=== PATIENT | male | born 1990 | race African-American/Black ===

== ENCOUNTER 2016-10-09 12:40 | Inpatient (IN) | payer SELFPAY ==
[~2016-10-09] VITALS: Ht 167.6 cm; Wt 74.9 kg
[2016-10-09] MEDS ORDERED: IV NORMAL SALINE 1000ML BAG 1,000 ML IV SCH ×2 (13:40→14:40)
[2016-10-09] MEDS ORDERED: ONDANSETRON PF 4 MG/2 ML VIAL. IV ONE (13:45)
[2016-10-09] MEDS ORDERED: FENTANYL PF 100 MCG/2 ML VIAL. IV PRN ×3 (13:45→14:45)
[2016-10-09] MEDS ORDERED: FAMOTIDINE 20 MG/2 ML VIAL IVP ONE (13:45)
--- NOTE | 2016-10-09 13:46 | PHYS DOC ---
Past Medical History Past Medical History: No Pertinent History Past Surgical History: No Surgical History Alcohol Use: Occasionally Drug Use: None Adult General Chief Complaint Chief Complaint: ABDOMINAL PAIN HPI HPI Patient is a 26 year old male who presents with complaint of abdominal pain, nausea, and vomiting. Patient states that he has been sick for the past 2 weeks. Patient was seen at [facility] one week ago with complaint of chest pain. Patient states that he received a workup while in the emergency department but states that they did not find anything causing his pain. Patient states that he has developed nausea and vomiting over the past week and has been having loose stools. Patient has taken Tylenol to help symptoms with no relief. Patient denies any significant past medical history. Review of Systems Review of Systems Constitutional: Lightheadedness, bodyaches [] Eyes: Denies change in visual acuity, redness, or eye pain [] HENT: Denies nasal congestion or sore throat [] Respiratory: Denies cough or shortness of breath [] Cardiovascular: Denies chest pain or edema [] GI: Nausea, vomiting, diarrhea, abdominal pain [] : Denies dysuria or hematuria [] Musculoskeletal: Denies back pain or joint pain [] Integument: Denies rash or skin lesions [] Neurologic: Denies headache, focal weakness or sensory changes [] Current Medications Current Medications Current Medications Medications (Trade) Dose Ordered Sig/Krupa Start Time Stop Time Status Last Admin Dose Admin Acetaminophen (Tylenol) 650 mg PRN Q4HRS PRN 10/09/16 14:45 10/10/16 14:44 Famotidine (Pepcid) 20 mg 1X ONCE 10/09/16 13:45 10/09/16 13:46 DC 10/09/16 13:56 20 MG Fentanyl Citrate (Fentanyl 2ml Vial) 50 mcg PRN Q2HR PRN 10/09/16 14:45 10/10/16 14:44 UNV Fentanyl Citrate 50 mcg 50 mcg PRN Q2HR PRN 10/09/16 14:45 10/11/16 15:45 Ondansetron HCl (Zofran) 4 mg PRN Q8HRS PRN 10/09/16 14:45 10/10/16 14:44 Sodium Chloride (Iv Sodium Chloride 0.9% 1000ml Bag) 1,000 ml @ 200 mls/hr Q5H 10/09/16 14:45 10/10/16 14:44 10/09/16 15:01 200 MLS/HR Allergies Allergies Allergies Coded Allergies Type Severity Reaction Last Updated Verified No Known Drug Allergies 01/03/14 No Physical Exam Physical Exam Constitutional: Alert, afebrile, appears ill. [] HENT: Normocephalic, atraumatic, bilateral external ears normal, oropharynx dry , no oral exudates, nose normal. [] Eyes: PERRLA, EOMI, conjunctiva normal, no discharge. [] Neck: Normal range of motion, no tenderness, supple, no stridor. [] Cardiovascular: Tachycardia, regular rhythm, no murmur [] Lungs & Thorax: Bilateral breath sounds clear to auscultation [] Abdomen: Hyperactive bowel sounds, soft, right lower quadrant tenderness to palpation with guarding, no masses, no pulsatile masses. [] Skin: Warm, dry, no erythema, no rash. [] Back: No tenderness, no CVA tenderness. [] Extremities: No tenderness, no cyanosis, no clubbing, ROM intact, no edema. [] Neurologic: Alert and oriented X 3, normal motor function, normal sensory function, no focal deficits noted. [] Current Patient Data Vital Signs Vital Signs Date Time Temp Pulse Resp B/P Pulse Ox O2 Delivery O2 Flow Rate FiO2 10/09/16 14:25 77 18 122/81 97 Room Air 10/09/16 12:50 98.7 98.7 Lab Values Laboratory Tests Test 10/09/16 12:50 10/09/16 13:04 Urine Collection Type Unknown Urine Color Merissa Urine Clarity Clear Urine pH 6.5 Urine Specific [place] >=1.030 Urine Protein >=300mg/dL (NEG-TRACE) Urine Glucose (UA) Negativemg/dL (NEG) Urine Ketones (Stick) >=80mg/dL (NEG) Urine Blood Large (NEG) Urine Nitrite (NEG) Urine Bilirubin Large (NEG) Urine Urobilinogen Dipstick 1.0mg/dL (0.2 mg/dL) Urine Leukocyte Esterase (NEG) Urine RBC Occ/HPF (0-2) Urine WBC 5-10/HPF (0-4) Urine Amorphous Sediment Present/HPF Urine Bacteria Few/HPF (0-FEW) Urine Hyaline Casts Many/HPF Urine Granular Casts Few/HPF Urine Mucus Mod/LPF White Blood Count 4.7x10^3/uL (4.0-11.0) Red Blood Count 5.69x10^6/uL (4.30-5.70) Hemoglobin 16.7g/dL (13.0-17.5) Hematocrit 50.5% (39.0-53.0) Mean Corpuscular Volume 89fL (79-100) Mean Corpuscular Hemoglobin 29pg (25-35) Mean Corpuscular Hemoglobin Concent 33g/dL (31-37) Red Cell Distribution Width 12.9% (11.5-14.5) Platelet Count 93x10^3/uL (140-400) L Neutrophils (%) (Auto) 52% (31-73) Lymphocytes (%) (Auto) 37% (24-48) Monocytes (%) (Auto) 10% (0-9) H Eosinophils (%) (Auto) 0% (0-3) Basophils (%) (Auto) 1% (0-3) Neutrophils # (Auto) 2.5x10^3uL (1.8-7.7) Lymphocytes # (Auto) 1.7x10^3/uL (1.0-4.8) Monocytes # (Auto) 0.5x10^3/uL (0.0-1.1) Eosinophils # (Auto) 0.0x10^3/uL (0.0-0.7) Basophils # (Auto) 0.0x10^3/uL (0.0-0.2) Platelet Estimate Decreased (ADEQUATE) Giant Platelets Present Spherocytes Present [place] Bodies Present Acanthocytes (Spur Cells) Present Sodium Level 132mmol/L (136-145) L Potassium Level 3.7mmol/L (3.5-5.1) Chloride Level 96mmol/L (98-107) L Carbon Dioxide Level 23mmol/L (21-32) Anion Gap 13 (6-14) Blood Urea Nitrogen 24mg/dL (8-26) Creatinine 1.1mg/dL (0.7-1.3) Estimated GFR (Cockcroft-Gault) 99.5 BUN/Creatinine Ratio 22 (6-20) H Glucose Level 88mg/dL (70-99) Calcium Level 8.7mg/dL (8.5-10.1) Total Bilirubin 0.8mg/dL (0.2-1.0) Aspartate Amino Transferase (AST) 470U/L (15-37) H Alanine Aminotransferase (ALT) 200U/L (16-63) H Alkaline Phosphatase 79U/L (46-116) Creatine Kinase 2906U/L (39-308) H Total Protein 7.3g/dL (6.4-8.2) Albumin 2.9g/dL (3.4-5.0) L Albumin/Globulin Ratio 0.7 (1.0-1.7) L Lipase 1638U/L (73-393) H Laboratory Tests 10/09/16 13:04 Laboratory Tests 10/09/16 13:04 EKG EKG Not performed [] Radiology/Procedures Radiology/Procedures [facility] [address] [place] [address] IMAGING REPORT Signed PATIENT: RJ SORENSEN ACCOUNT: [id number] : 1990 LOCATION: ER AGE: 26 SEX: M EXAM STATUS: REG ER ORD. PHYSICIAN: VERO ORTIZ MD REASON: acute pancreatitis PROCEDURE: ABD PELV W/ IV CONTRAST ONLY EXAM: CT abdomen/pelvis with contrast. HISTORY: Pancreatitis. TECHNIQUE: Computed tomography of the abdomen and pelvis was performed after the intravenous administration of 75 mL Omnipaque 300. COMPARISON: None. FINDINGS: Lung windows through the visualized portions of the bases reveal trace bilateral pleural effusions and mild atelectasis. Bone windows reveal no suspicious lesions. There is trace perisplenic ascites. The spleen itself is unremarkable. The liver, gallbladder, adrenal glands and kidneys are unremarkable. There are no pathologically enlarged lymph nodes. There is trace free pelvic fluid. The appendix is not inflamed. There is no obstruction. There is no clear peripancreatic inflammation. The pancreatic parenchyma enhances normally. The duct is not dilated. The splenic vein remains patent. No pseudoaneurysm is seen. The common duct is not dilated. IMPRESSION: 1. No clear peripancreatic inflammation or complications of pancreatitis. 2. Trace pleural effusions and trace ascites. *One or more of the following individualized dose reduction techniques were utilized for this examination: 1. Automated exposure control. 2. Adjustment of the mA and/or kV according to patient size. 3. Use of iterative reconstruction technique. DICTATED and SIGNED BY: EMMANUEL LE MD DATE: 10/09/16 1538 CC: VERO ORTIZ MD; NO PCP ~ [] Course & Med Decision Making Course & Med Decision Making Pertinent Labs and Imaging studies reviewed. (See chart for details) The patient was found to have rhabdomyolysis and acute pancreatitis. Patient's rhabdomyolysis is likely secondary to dehydration. Etiology of pancreatitis unclear at this time. The patient will require admission to the hospital for continued IV hydration and further workup. I spoke with Dr. Clark who accepted care patient in hospital. Dragon Disclaimer Dragon Disclaimer This electronic medical record was generated, in whole or in part, using a voice recognition dictation system. Departure Departure Impression: Primary Impression: Rhabdomyolysis Additional Impressions: Acute pancreatitis Dehydration Disposition: ADMITTED INPATIENT Admitting Physician: Dania Clark Condition: STABLE Referrals: NO PCP (PCP) Problem Qualifiers Primary Impression: Rhabdomyolysis Rhabdomyolysis type: non-traumatic Qualified Code: M62.82 - Rhabdomyolysis Additional Impressions: Acute pancreatitis Pancreatitis type: unspecified pancreatitis type Acute pancreatitis complication: unspecified Qualified Code: K85.90 - Acute pancreatitis without necrosis or infection, unspecified VERO ORTIZ MD Oct 09, 2016 13:46
[2016-10-09 13:51] LABS: BILIRUBIN,URINE LARGE (NEG); GLUCOSE,URINE NEGATIVE (NEG); PH,URINE 6.5; PROTEIN,URINE >=300 mg/dL (NEG-TRACE)
[2016-10-09 13:52] LABS: BASO % 1 % (0-3); EOS % 0 % (0-3); HEMATOCRIT 50.5 % (39.0-53.0); HEMOGLOBIN 16.7 g/dL (13.0-17.5); LYMPH # 1.7 x10^3/uL (1.0-4.8); LYMPH % 37 % (24-48); MEAN CORPUSCULAR HEMOGLOBIN 29 pg (25-35); MEAN CORPUSCULAR HGB CONC 33 g/dL (31-37); MEAN CORPUSCULAR VOLUME 89 fL (79-100); MONO % 10 % (0-9); NEUT % 52 % (31-73); PLATELET COUNT 93 x10^3/uL (140-400); RED BLOOD COUNT 5.69 x10^6/uL (4.30-5.70); RED CELL DISTRIBUTION WIDTH 12.9 % (11.5-14.5); WHITE BLOOD COUNT 4.7 x10^3/uL (4.0-11.0)
[2016-10-09 14:05] LABS: CALCIUM 8.7 mg/dL (8.5-10.1); CREATININE 1.1 mg/dL (0.7-1.3); GFR 99.5; POTASSIUM 3.7 mmol/L (3.5-5.1)
[2016-10-09 14:11] LABS: BACTERIA,URINE FEW /HPF (0-FEW); RBC,URINE OCC /HPF (0-2)
[2016-10-09 14:19] LABS: ALBUMIN 2.9 g/dL (3.4-5.0); ALBUMIN/GLOBULIN RATIO 0.7 (1.0-1.7); TOTAL BILIRUBIN 0.8 mg/dL (0.2-1.0); TOTAL PROTEIN 7.3 g/dL (6.4-8.2)
[2016-10-09] MEDS ORDERED: ACETAMINOPHEN 325 MG TABLET. PO PRN (14:45)
[2016-10-09] MEDS ORDERED: ONDANSETRON PF 4 MG/2 ML VIAL. IV PRN ×2 (14:45)
[2016-10-09 14:53] LABS: PLT ESTIMATE DECREASED (ADEQUATE)
[2016-10-09 14:54] LABS: ACANTHOCYTES PRESENT; SPHEROCYTES PRESENT
[2016-10-09] MEDS ORDERED: IV NORMAL SALINE 1000ML BAG 1,000 ML IV ONE (15:00)
[2016-10-09] MEDS: IV NORMAL SALINE 1000ML BAG 1,000 ML IV SCH ×2 (15:01→22:46)
[2016-10-09 15:13] LABS: HOWELL-JOLLY BODIES PRESENT
[2016-10-09] MEDS ORDERED: IOHEXOL 300 MG/ML 75 ML VIAL IV ONE (15:15)
[2016-10-09] MEDS ORDERED: CONTRAST GIVEN MC PRN (15:15)
--- NOTE | 2016-10-09 15:51 | RAD ---
EXAM: CT abdomen/pelvis with contrast. HISTORY: Pancreatitis. TECHNIQUE: Computed tomography of the abdomen and pelvis was performed after the intravenous administration of 75 mL Omnipaque 300. COMPARISON: None. FINDINGS: Lung windows through the visualized portions of the bases reveal trace bilateral pleural effusions and mild atelectasis. Bone windows reveal no suspicious lesions. There is trace perisplenic ascites. The spleen itself is unremarkable. The liver, gallbladder, adrenal glands and kidneys are unremarkable. There are no pathologically enlarged lymph nodes. There is trace free pelvic fluid. The appendix is not inflamed. There is no obstruction. There is no clear peripancreatic inflammation. The pancreatic parenchyma enhances normally. The duct is not dilated. The splenic vein remains patent. No pseudoaneurysm is seen. The common duct is not dilated. IMPRESSION: 1. No clear peripancreatic inflammation or complications of pancreatitis. 2. Trace pleural effusions and trace ascites. *One or more of the following individualized dose reduction techniques were utilized for this examination: 1. Automated exposure control. 2. Adjustment of the mA and/or kV according to patient size. 3. Use of iterative reconstruction technique.
--- NOTE | 2016-10-09 16:25 | PDOC1 ---
History and Physical Date of Admission Date of Admission DATE: 10/09/16 TIME: 16:18 Identification/Chief Complaint Chief Complaint abd pain, lethargy, no appetite Source Source: Chart review, Patient History of Present Illness History of Present Illness Mr. Cool, is a 26 year old male admitted for worsening abdominal pain, nausea, and vomiting. He went to 2 weeks ago, was seen in the ER for chest pain and was DC home He has since felt sick for the past 2 weeks. Now nausea and vomiting over the past week and has been having loose stools. His urine color has changed to very dark very poor appetite, mostly only liquid intake, Patient has taken Tylenol - no relief. Past Medical History Past Medical History not currently working, + tobacco, lives with his sister Cardiovascular: No pertinent hx Pulmonary: No pertinent hx GI: No pertinent hx Heme/Onc: No pertinent hx Hepatobiliary: No pertinent hx Psych: No pertinent hx Rheumatologic: No pertinent hx Infectious disease: No pertinent hx ENT: No pertinent hx Renal/: No pertinent hx Past Surgical History Past Surgical History: No pertinent history Family History Family History: No Significant Social History Smoke: <1 pack per day ALCOHOL: none Drugs: None Current Medications Current Medications Current Medications Fentanyl Citrate 50 mcg 50 mcg PRN Q15MIN PRN IV PAIN GREATER THAN 3/10 Last administered on 10/09/16 13:56; Start 10/09/16 at 13:45; Stop 10/10/16 at 13:44 Sodium Chloride (Iv Sodium Chloride 0.9% 1000ml Bag) 1,000 ml @ 1,000 mls/hr Q1H IV Last administered on 10/09/16 13:57; Start 10/09/16 at 13:40; Stop at 14:39; Status DC Ondansetron HCl (Zofran) 4 mg 1X ONCE IV Last administered on 10/09/16 13:55; Start 10/09/16 at 13:45; Stop 10/09/16 at 13:46; Status DC Famotidine 20 mg 20 mg 1X ONCE IVP Last administered on 10/09/16 13:56; Start 10/09/16 at 13:45; Stop 10/09/16 at 13:46; Status DC Sodium Chloride (Iv Sodium Chloride 0.9% 1000ml Bag) 1,000 ml @ 1,000 mls/hr 1X ONCE IV Last administered on 10/09/16 14:50; Start 10/09/16 at 15:00; Stop 10/09/16 at 15:59; Status DC Ondansetron HCl (Zofran) 4 mg PRN Q8HRS PRN IV NAUSEA/VOMITING; Start 10/09/16 at 14:45; Stop 10/10/16 at 14:44; Status UNV Fentanyl Citrate 50 mcg 50 mcg PRN Q2HR PRN IV PAIN; Start 10/09/16 at 14:45; Stop 10/10/16 at 14:44; Status UNV Sodium Chloride (Iv Sodium Chloride 0.9% 1000ml Bag) 1,000 ml @ 125 mls/hr Q8H IV ; Start 10/09/16 at 14:40; Stop 10/10/16 at 14:39; Status UNV Ondansetron HCl (Zofran) 4 mg PRN Q8HRS PRN IV NAUSEA/VOMITING; Start 10/09/16 at 14:45; Stop 10/10/16 at 14:44 Fentanyl Citrate 50 mcg 50 mcg PRN Q2HR PRN IV PAIN; Start 10/09/16 at 14:45; Stop 10/11/16 at 15:45 Sodium Chloride (Iv Sodium Chloride 0.9% 1000ml Bag) 1,000 ml @ 200 mls/hr Q5H IV Last administered on 10/09/16 15:01; Start 10/09/16 at 14:45; Stop 10/10/16 at 14:44 Acetaminophen (Tylenol) 650 mg PRN Q4HRS PRN PO FEVER; Start 10/09/16 at 14:45; Stop 10/10/16 at 14:44 Iohexol (Omnipaque 300 Mg/ml) 75 ml 1X ONCE IV Last administered on 10/09/16 15:26; Start 10/09/16 at 15:15; Stop 10/09/16 at 15:16; Status DC Info (Do NOT chart on this entry -- for MONITORING) 1 each PRN DAILY PRN MC SEE COMMENTS; Start 10/09/16 at 15:15; Stop 10/11/16 at 15:14 Allergies Allergies: Coded Allergies: No Known Drug Allergies (Unverified , 01/03/14) ROS General: YES: Appetite, No: Chills, Fatigue, Malaise, Night Sweats, Other PSYCHOLOGICAL ROS: YES: Irritablity, No: Anxiety, Behavioral Disorder, Concentration difficultie, Decreased libido , Depression, Disorientation, Hallucinations, Hostility, Memory difficulties, Mood Swings, Obsessive thoughts, Other, Physical abuse, Sexual abuse, Sleep disturbances, Suicidal ideation Eyes: Yes Uses glasses, No Blurry vision, No Decreased vision, No Double vision, No Dry eyes, No Excessive tearing, No Eye Pain, No Itchy Eyes, No Loss of vision, No Other, No Photophobia, No Scotomata, No Uses contacts HEENT: YES: Heacaches, No: Epistaxis, Hearing change, Nasal congestion, Nasal discharge, Oral lesions, Other, Sinus pain, Sneezing, Snoring, Sore Throat, Tinnitus, Vertigo, Visual Changes, Vocal changes Respiratory: No: Cough, Hemoptysis, Orthopnea, Other, Pleuritic Pain, SOB with excertion, Shortness of breath, Sputum Changes, Stridor, Tachypnea, Wheezing Cardiovascular: yes Chest Pain, No Edema, No Lt Headedness, No Orthopnea, No Other, No Palpitations, No Paroxysmal Noc. Dyspnea Gastrointestinal: Yes Abdominal Pain, Yes Nausea, No Constipation, No Diarrhea, No Hematochezia, No Melena, No Other, No Vomiting Genitourinary: YES Dysuria (DARK), YES Other, No , No , No , No , No , No , No , No Discharge, No Flank Pain, No Frequency , No Hematuria, No Incontinence, No Pain, No Retention, No Urgency Musculoskeletal: Yes Joint Pain, No Gait Disturbance, No Joint Stiffness, No Joint Swelling, No Muscle Pain, No Muscular Weakness, No Other, No Pain In:, No Swelling In: Neurological: No Behavorial Changes, No Bowel/Bladder ControlChng, No Confusion , No Dizziness, No Gait Disturbance, No Headaches, No Impaired Coord/balance, No Memory Loss, No Numbness/Tingling, No Other, No Seizures, No Speech Problems , No Tremors, No Visual Changes, No Weakness Skin: No Acne, No Dry Skin, No Eczema, No Hair Changes, No Lumps, No Mole Changes, No Mottling, No Nail Changes, No Other, No Pruritus, No Rash, No Skin Lesion Changes Physical Exam General: Alert, Oriented X3, Cooperative, mild distress HEENT: Atraumatic, PERRLA, EOMI, Mucous membr. moist/pink, Other (tongue is pierced) Lungs: Clear to auscultation, Normal air movement Abdomen: Normal bowel sounds, Soft (tender, no guarding, no peritoneal, ) Extremities: No clubbing, No cyanosis, No edema, Normal pulses Skin: No breakdown Neuro: Normal gait, Normal tone, Sensation intact Psych/Mental Status: Mood NL Vitals Vitals Vital Signs Date Time Temp Pulse Resp B/P Pulse Ox O2 Delivery O2 Flow Rate FiO2 10/09/16 16:00 72 18 118/74 99 10/09/16 14:25 Room Air 10/09/16 12:50 98.7 98.7 Labs Labs Laboratory Tests Test 10/09/16 12:50 10/09/16 13:04 Urine Collection Type Unknown Urine Color Merissa Urine Clarity Clear Urine pH 6.5 Urine Specific [place] >=1.030 Urine Protein >=300mg/dL (NEG-TRACE) Urine Glucose (UA) Negativemg/dL (NEG) Urine Ketones (Stick) >=80mg/dL (NEG) Urine Blood Large (NEG) Urine Nitrite (NEG) Urine Bilirubin Large (NEG) Urine Urobilinogen Dipstick 1.0mg/dL (0.2 mg/dL) Urine Leukocyte Esterase (NEG) Urine RBC Occ/HPF (0-2) Urine WBC 5-10/HPF (0-4) Urine Amorphous Sediment Present/HPF Urine Bacteria Few/HPF (0-FEW) Urine Hyaline Casts Many/HPF Urine Granular Casts Few/HPF Urine Mucus Mod/LPF White Blood Count 4.7x10^3/uL (4.0-11.0) Red Blood Count 5.69x10^6/uL (4.30-5.70) Hemoglobin 16.7g/dL (13.0-17.5) Hematocrit 50.5% (39.0-53.0) Mean Corpuscular Volume 89fL (79-100) Mean Corpuscular Hemoglobin 29pg (25-35) Mean Corpuscular Hemoglobin Concent 33g/dL (31-37) Red Cell Distribution Width 12.9% (11.5-14.5) Platelet Count 93x10^3/uL (140-400) Neutrophils (%) (Auto) 52% (31-73) Lymphocytes (%) (Auto) 37% (24-48) Monocytes (%) (Auto) 10% (0-9) Eosinophils (%) (Auto) 0% (0-3) Basophils (%) (Auto) 1% (0-3) Neutrophils # (Auto) 2.5x10^3uL (1.8-7.7) Lymphocytes # (Auto) 1.7x10^3/uL (1.0-4.8) Monocytes # (Auto) 0.5x10^3/uL (0.0-1.1) Eosinophils # (Auto) 0.0x10^3/uL (0.0-0.7) Basophils # (Auto) 0.0x10^3/uL (0.0-0.2) Platelet Estimate Decreased (ADEQUATE) Giant Platelets Present Spherocytes Present [place] Bodies Present Acanthocytes Present Sodium Level 132mmol/L (136-145) Potassium Level 3.7mmol/L (3.5-5.1) Chloride Level 96mmol/L (98-107) Carbon Dioxide Level 23mmol/L (21-32) Anion Gap 13 (6-14) Blood Urea Nitrogen 24mg/dL (8-26) Creatinine 1.1mg/dL (0.7-1.3) Estimated GFR (Cockcroft-Gault) 99.5 BUN/Creatinine Ratio 22 (6-20) Glucose Level 88mg/dL (70-99) Calcium Level 8.7mg/dL (8.5-10.1) Total Bilirubin 0.8mg/dL (0.2-1.0) Aspartate Amino Transf (AST/SGOT) 470U/L (15-37) Alanine Aminotransferase (ALT/SGPT) 200U/L (16-63) Alkaline Phosphatase 79U/L (46-116) Creatine Kinase 2906U/L (39-308) Total Protein 7.3g/dL (6.4-8.2) Albumin 2.9g/dL (3.4-5.0) Albumin/Globulin Ratio 0.7 (1.0-1.7) Lipase 1638U/L (73-393) Laboratory Tests Test 10/09/16 12:50 10/09/16 13:04 Urine Collection Type Unknown Urine Color Merissa Urine Clarity Clear Urine pH 6.5 Urine Specific [place] >=1.030 Urine Protein >=300mg/dL (NEG-TRACE) Urine Glucose (UA) Negativemg/dL (NEG) Urine Ketones (Stick) >=80mg/dL (NEG) Urine Blood Large (NEG) Urine Nitrite (NEG) Urine Bilirubin Large (NEG) Urine Urobilinogen Dipstick 1.0mg/dL (0.2 mg/dL) Urine Leukocyte Esterase (NEG) Urine RBC Occ/HPF (0-2) Urine WBC 5-10/HPF (0-4) Urine Amorphous Sediment Present/HPF Urine Bacteria Few/HPF (0-FEW) Urine Hyaline Casts Many/HPF Urine Granular Casts Few/HPF Urine Mucus Mod/LPF White Blood Count 4.7x10^3/uL (4.0-11.0) Red Blood Count 5.69x10^6/uL (4.30-5.70) Hemoglobin 16.7g/dL (13.0-17.5) Hematocrit 50.5% (39.0-53.0) Mean Corpuscular Volume 89fL (79-100) Mean Corpuscular Hemoglobin 29pg (25-35) Mean Corpuscular Hemoglobin Concent 33g/dL (31-37) Red Cell Distribution Width 12.9% (11.5-14.5) Platelet Count 93x10^3/uL (140-400) Neutrophils (%) (Auto) 52% (31-73) Lymphocytes (%) (Auto) 37% (24-48) Monocytes (%) (Auto) 10% (0-9) Eosinophils (%) (Auto) 0% (0-3) Basophils (%) (Auto) 1% (0-3) Neutrophils # (Auto) 2.5x10^3uL (1.8-7.7) Lymphocytes # (Auto) 1.7x10^3/uL (1.0-4.8) Monocytes # (Auto) 0.5x10^3/uL (0.0-1.1) Eosinophils # (Auto) 0.0x10^3/uL (0.0-0.7) Basophils # (Auto) 0.0x10^3/uL (0.0-0.2) Platelet Estimate Decreased (ADEQUATE) Giant Platelets Present Spherocytes Present [place] Bodies Present Acanthocytes Present Sodium Level 132mmol/L (136-145) Potassium Level 3.7mmol/L (3.5-5.1) Chloride Level 96mmol/L (98-107) Carbon Dioxide Level 23mmol/L (21-32) Anion Gap 13 (6-14) Blood Urea Nitrogen 24mg/dL (8-26) Creatinine 1.1mg/dL (0.7-1.3) Estimated GFR (Cockcroft-Gault) 99.5 BUN/Creatinine Ratio 22 (6-20) Glucose Level 88mg/dL (70-99) Calcium Level 8.7mg/dL (8.5-10.1) Total Bilirubin 0.8mg/dL (0.2-1.0) Aspartate Amino Transf (AST/SGOT) 470U/L (15-37) Alanine Aminotransferase (ALT/SGPT) 200U/L (16-63) Alkaline Phosphatase 79U/L (46-116) Creatine Kinase 2906U/L (39-308) Total Protein 7.3g/dL (6.4-8.2) Albumin 2.9g/dL (3.4-5.0) Albumin/Globulin Ratio 0.7 (1.0-1.7) Lipase 1638U/L (73-393) VTE Prophylaxis Ordered VTE Prophylaxis Devices: Yes VTE Pharmacological Prophylaxi: No Assessment/Plan Assessment/Plan pancreatitis transaminitis Rhabdomyolisis hyponatemia, hypovolemic admit, aggresive IV fluid Renal consult for rhabdo GI consult for poss stone, check US CT scan looks OK, pancreas not inflamed SHEYLA GOODE MD Oct 09, 2016 16:25
[2016-10-09 17:29] LABS: NEGATIVE OBC MONO NEG; POSITIVE OBC MONO POS
--- NOTE | 2016-10-09 18:01 | ACF ---
Admission Forms Criteria PANCREATITIS Clinical Indications for Admission to Inpatient Care (Place 'X' for any and all applicable criteria): Admission is indicated for ANY ONE of the following (1)(2)(3)(4): [X]I. Acute pancreatitis[A] as indicated by 2 or more of the following: [X]a) Abdominal pain (eg, epigastric, left upper quadrant) [X]b) Serum amylase or serum lipase greater than 3 times the upper limit of normal [ ]c) Characteristic findings from abdominal imaging (eg, pancreatic inflammation, pancreatic necrosis, peripancreatic fluid collection)[B] [ ]II. Pancreatitis (acute or chronic ) requiring inpatient care as indicated by 1 or more of the following : [ ]a) Inability to maintain oral hydration Hypoxemia [ ]b) Evidence of infection (eg, fever, peripancreatic abscess) [ ]c) Severe pain requiring acute inpatient management [ ]d) Hemodynamic instability [ ]e) Hypoxemia [ ]f) Acute renal failure [ ]g) Severe electrolyte abnormalities Extended stay beyond goal length of stay may be needed for (1)(11) [ ]a) Severe acute pancreatitis (10)(19) [ ]b) Persistent symptoms, ascites, or pleural effusion [ ]c) Abdominal compartment syndrome (10) [ ]d) Late complications [ ]e) Acute renal failure (27) [ ]f) Gallstones in gallbladder The original [employer] content created by [employer] has been revised. The portions of the content which have been revised are identified through the use of italic text or in bold,and [facility] has neither reviewed nor approved the modified material.All other unmodified content is copyright [employer]. Please see references footnoted in the original [employer] edition 2016 Admission Criteria Met?: Yes SANDOVAL SPARROW Oct 09, 2016 18:01
[2016-10-09 19:50] VITALS: BP 120/65
[2016-10-09 23:16] VITALS: BP 120/72
[2016-10-10 03:26] VITALS: BP 113/60
[2016-10-10] MEDS: IV NORMAL SALINE 1000ML BAG 1,000 ML IV SCH ×5 (03:35→23:35)
[2016-10-10 05:18] LABS: BASO % 0 % (0-3); EOS % 0 % (0-3); HEMATOCRIT 37.3 % (39.0-53.0); HEMOGLOBIN 12.4 g/dL (13.0-17.5); LYMPH # 1.5 x10^3/uL (1.0-4.8); LYMPH % 30 % (24-48); MEAN CORPUSCULAR HEMOGLOBIN 30 pg (25-35); MEAN CORPUSCULAR HGB CONC 33 g/dL (31-37); MEAN CORPUSCULAR VOLUME 89 fL (79-100); MONO % 11 % (0-9); NEUT % 59 % (31-73); PLATELET COUNT 87 x10^3/uL (140-400); RED BLOOD COUNT 4.19 x10^6/uL (4.30-5.70); RED CELL DISTRIBUTION WIDTH 12.9 % (11.5-14.5); WHITE BLOOD COUNT 5.2 x10^3/uL (4.0-11.0)
[2016-10-10 05:36] LABS: CALCIUM 7.5 mg/dL (8.5-10.1); GFR 111.1; POTASSIUM 3.4 mmol/L (3.5-5.1)
[2016-10-10 05:55] LABS: ALBUMIN 2.2 g/dL (3.4-5.0); DIRECT BILIRUBIN 0.1 mg/dL (0.0-0.2); TOTAL BILIRUBIN 0.7 mg/dL (0.2-1.0); TOTAL PROTEIN 4.9 g/dL (6.4-8.2)
[2016-10-10 07:00] VITALS: BP_SYST 107; BP_SYST 99; BP_DIAS 54; BP_DIAS 60
--- NOTE | 2016-10-10 07:59 | RAD ---
Right upper quadrant abdominal ultrasound, 10/09/2016: History: Acute pancreatitis, pain The gallbladder is within normal limits in size. There is no sonographic evidence of cholelithiasis. The gallbladder alonso are not thickened. No bile duct dilatation is seen. The visualized portions of the liver are unremarkable. The pancreas was not clearly defined due to overlying bowel. No abnormal peripancreatic fluid collection is seen. Limited views of the right kidney are unremarkable. A trace amount of right-sided pleural fluid is noted, as also seen on yesterday's CT exam. IMPRESSION: No significant gallbladder abnormality is detected.
--- NOTE | 2016-10-10 09:34 | PDOC2 ---
GI CONSULT Reason For Consult: Pancreatitis HPI: HPI: 26 y/o male evaluated in the ER for abd pain, n/v, and diarrhea. Reports was recently seen at ER for chest pain and sent home w/ normal workup; this pain has not recurred. Abd pain began 1 week ago w/o precipitating events. It's mostly lower, around umbilicus. Associated w/ decreased appetite and random episodes of vomiting w/ 3 watery stools daily. Has also had fevers (didn't check how high), tried OTC treatments available at home (Tylenol, Mucinex) w/o relief. Noted dark urine. Denies significant PMH or GI issues; did have colonoscopy (unclear why or where) years ago that was reportedly normal. Note was seen in ER here in 2016 for sore throat, abd pain - sent home w/ Pepcid, Maalox. Labs: bili 0.8, AST 470 (271), ALT 200 (122), Alk Phos 70, lipase 1638 (now 1883), creatine kinase 2906 (now 1902). CRP 7.1, CMV IgG Ab 2.3, heterophil agglutinins neg, acetaminophen <2. UA w/ protein, ketones, blood, bilirubin. CT w/ trace pleural effusions and trace ascites. RUQ US unrevealing. Admitted w/ rhabdomyolysis, renal also consulted. PMH: PMH: denies FH: Family History: No pertinent hx (denies GI cancers) Social History: Smoke: <1 pack per day (1/2 ppd) ALCOHOL: occassional (2 vodkas weekly) Drugs: None ROS: GEN: +fevers HEENT: Denies blurred vision, sore throat CV: +CP last week (resolved) RESP: Denies shortness of air, cough GI: Per HPI : +dark urine ENDO: Denies weight changes NEURO: Denies confusion, dizziness MSK: Denies weakness, joint pain/swelling SKIN: Denies jaundice, pruritus VItals: Vitals: Vital Signs Date Time Temp Pulse Resp B/P Pulse Ox O2 Delivery O2 Flow Rate FiO2 10/10/16 03:26 98.6 66 18 113/60 96 Room Air 98.6 Labs: Labs: Laboratory Tests Test 10/09/16 12:50 10/09/16 13:04 10/09/16 17:15 10/10/16 04:20 Urine Collection Type Unknown Urine Color Merissa Urine Clarity Clear Urine pH 6.5 Urine Specific Carmen >=1.030 Urine Protein >=300mg/dL (NEG-TRACE) Urine Glucose (UA) Negativemg/dL (NEG) Urine Ketones (Stick) >=80mg/dL (NEG) Urine Blood Large (NEG) Urine Nitrite (NEG) Urine Bilirubin Large (NEG) Urine Urobilinogen Dipstick 1.0mg/dL (0.2 mg/dL) Urine Leukocyte Esterase (NEG) Urine RBC Occ/HPF (0-2) Urine WBC 5-10/HPF (0-4) Urine Amorphous Sediment Present/HPF Urine Bacteria Few/HPF (0-FEW) Urine Hyaline Casts Many/HPF Urine Granular Casts Few/HPF Urine Mucus Mod/LPF White Blood Count 4.7x10^3/uL (4.0-11.0) 5.2x10^3/uL (4.0-11.0) Red Blood Count 5.69x10^6/uL (4.30-5.70) 4.19x10^6/uL (4.30-5.70) Hemoglobin 16.7g/dL (13.0-17.5) 12.4g/dL (13.0-17.5) Hematocrit 50.5% (39.0-53.0) 37.3% (39.0-53.0) Mean Corpuscular Volume 89fL (79-100) 89fL (79-100) Mean Corpuscular Hemoglobin 29pg (25-35) 30pg (25-35) Mean Corpuscular Hemoglobin Concent 33g/dL (31-37) 33g/dL (31-37) Red Cell Distribution Width 12.9% (11.5-14.5) 12.9% (11.5-14.5) Platelet Count 93x10^3/uL (140-400) 87x10^3/uL (140-400) Neutrophils (%) (Auto) 52% (31-73) 59% (31-73) Lymphocytes (%) (Auto) 37% (24-48) 30% (24-48) Monocytes (%) (Auto) 10% (0-9) 11% (0-9) Eosinophils (%) (Auto) 0% (0-3) 0% (0-3) Basophils (%) (Auto) 1% (0-3) 0% (0-3) Neutrophils # (Auto) 2.5x10^3uL (1.8-7.7) 3.1x10^3uL (1.8-7.7) Lymphocytes # (Auto) 1.7x10^3/uL (1.0-4.8) 1.5x10^3/uL (1.0-4.8) Monocytes # (Auto) 0.5x10^3/uL (0.0-1.1) 0.6x10^3/uL (0.0-1.1) Eosinophils # (Auto) 0.0x10^3/uL (0.0-0.7) 0.0x10^3/uL (0.0-0.7) Basophils # (Auto) 0.0x10^3/uL (0.0-0.2) 0.0x10^3/uL (0.0-0.2) Platelet Estimate Decreased (ADEQUATE) Giant Platelets Present Spherocytes Present [place] Bodies Present Acanthocytes Present Sodium Level 132mmol/L (136-145) 139mmol/L (136-145) Potassium Level 3.7mmol/L (3.5-5.1) 3.4mmol/L (3.5-5.1) Chloride Level 96mmol/L (98-107) 105mmol/L (98-107) Carbon Dioxide Level 23mmol/L (21-32) 23mmol/L (21-32) Anion Gap 13 (6-14) 11 (6-14) Blood Urea Nitrogen 24mg/dL (8-26) 20mg/dL (8-26) Creatinine 1.1mg/dL (0.7-1.3) 1.0mg/dL (0.7-1.3) Estimated GFR (Cockcroft-Gault) 99.5 111.1 BUN/Creatinine Ratio 22 (6-20) Glucose Level 88mg/dL (70-99) 74mg/dL (70-99) Calcium Level 8.7mg/dL (8.5-10.1) 7.5mg/dL (8.5-10.1) Total Bilirubin 0.8mg/dL (0.2-1.0) 0.7mg/dL (0.2-1.0) Aspartate Amino Transf (AST/SGOT) 470U/L (15-37) 271U/L (15-37) Alanine Aminotransferase (ALT/SGPT) 200U/L (16-63) 122U/L (16-63) Alkaline Phosphatase 79U/L (46-116) 47U/L (46-116) Creatine Kinase 2906U/L (39-308) 1883U/L (39-308) Total Protein 7.3g/dL (6.4-8.2) 4.9g/dL (6.4-8.2) Albumin 2.9g/dL (3.4-5.0) 2.2g/dL (3.4-5.0) Albumin/Globulin Ratio 0.7 (1.0-1.7) Lipase 1638U/L (73-393) 1902U/L (73-393) Acetaminophen Level < 2mcg/ml (10-30) Acetaminophen Last Dose Date Unk Acetaminophen Last Dose Time Unk Cytomegalovirus IgG Antibody 2.30U/mL (0.00-0.59) Cytomegalovirus IgM Antibody <30.0AU/mL (0.0-29.9) Heterophil Agglutinins Negative (NEGATIVE) Erythrocyte Sedimentation Rate 11 (0-15) Direct Bilirubin 0.1mg/dL (0.0-0.2) C-Reactive Protein, Quantitative 7.1mg/L (0-3.3) Allergies: Coded Allergies: No Known Drug Allergies (Unverified , 01/03/14) Medications: Current Medications Medications (Trade) Dose Ordered Sig/Krupa Route PRN Reason Start Time Stop Time Status Last Admin Dose Admin Fentanyl Citrate 50 mcg 50 mcg PRN Q15MIN PRN IV PAIN GREATER THAN 10/1110/09/16 13:45 10/10/16 13:44 10/09/16 13:56 Sodium Chloride (Iv Sodium Chloride 0.9% 1000ml Bag) 1,000 ml @ 1,000 mls/hr Q1H IV 10/09/16 13:40 10/09/16 14:39 DC 10/09/16 13:57 Ondansetron HCl (Zofran) 4 mg 1X ONCE IV 10/09/16 13:45 10/09/16 13:46 DC 10/09/16 13:55 Famotidine 20 mg 20 mg 1X ONCE IVP 10/09/16 13:45 10/09/16 13:46 DC 10/09/16 13:56 Sodium Chloride (Iv Sodium Chloride 0.9% 1000ml Bag) 1,000 ml @ 1,000 mls/hr 1X ONCE IV 10/09/16 15:00 10/09/16 15:59 DC 10/09/16 14:50 Fentanyl Citrate 50 mcg 50 mcg PRN Q2HR PRN IV PAIN 10/09/16 14:45 10/11/16 15:45 10/09/16 19:57 Sodium Chloride (Iv Sodium Chloride 0.9% 1000ml Bag) 1,000 ml @ 200 mls/hr Q5H IV 10/09/16 14:45 10/10/16 14:44 10/10/16 03:35 Iohexol (Omnipaque 300 Mg/ml) 75 ml 1X ONCE IV 10/09/16 15:15 10/09/16 15:16 DC 10/09/16 15:26 Imaging: Imaging: CT A/P w/ contrast FINDINGS: Lung windows through the visualized portions of the bases reveal trace bilateral pleural effusions and mild atelectasis. Bone windows reveal no suspicious lesions. There is trace perisplenic ascites. The spleen itself is unremarkable. The liver , gallbladder, adrenal glands and kidneys are unremarkable. There are no pathologically enlarged lymph nodes. There is trace free pelvic fluid. The appendix is not inflamed. There is no obstruction. There is no clear peripancreatic inflammation. The pancreatic parenchyma enhances normally. The duct is not dilated. The splenic vein remains patent. No pseudoaneurysm is seen. The common duct is not dilated. IMPRESSION: 1. No clear peripancreatic inflammation or complications of pancreatitis. 2. Trace pleural effusions and trace ascites. RUQ US The gallbladder is within normal limits in size. There is no sonographic evidence of cholelithiasis. The gallbladder alosno are not thickened. No bile duct dilatation is seen. The visualized portions of the liver are unremarkable. The pancreas was not clearly defined due to overlying bowel. No abnormal peripancreatic fluid collection is seen. Limited views of the right kidney are unremarkable. A trace amount of right-sided pleural fluid is noted, as also seen on yesterday's CT exam. IMPRESSION: No significant gallbladder abnormality is detected. PE: GEN: NAD HEENT: Atraumatic, PERRL LUNGS: CTAB anteriorly HEART: RRR ABD: NABS, S/ND, periumbilical tenderness, some RLQ EXTREMITY: No edema SKIN: No rashes, no jaundice NEURO/PSYCH: A & O 3 A/P: A/P: Abd pain, n/v, decreased appetite, diarrhea -onset 1 week ago Multiple lab abnormalities, elevated creatine kinase, rhabdomyolysis Elevated LFTs, lipase -CT, US unremarkable -- Urine myoglobin, acute hepatitis panel pending. ?heme consult for spherocytosis Other per Dr. Gusman. ARRON AGUDELO Oct 10, 2016 09:34
--- NOTE | 2016-10-10 09:55 | PDOC2 ---
CONSULT Date of Consult Date of Consult DATE: 10/10/16 TIME: 09:45 Reason for Consult Reason for Consult: [place] Referring Physician Referring Physician: Dr Clark Identification/Chief Complaint Chief Complaint Abd Pain Problems: Source Source: Chart review, Patient History of Present Illness Reason for Visit: as dictated Past Medical History Cardiovascular: No pertinent hx Pulmonary: No pertinent hx GI: No pertinent hx Heme/Onc: No pertinent hx Hepatobiliary: No pertinent hx Psych: No pertinent hx Rheumatologic: No pertinent hx Infectious disease: No pertinent hx ENT: No pertinent hx Renal/: No pertinent hx Past Surgical History Past Surgical History: No pertinent history Family History Family History: No Significant Social History Quit (/2 ppd) ALCOHOL: rare (2 vodkas weekly) Drugs: None Domestic Violence: Neg Current Problem List Problem List Problems Medical Problems: (1) Acute pancreatitis Status: Acute (2) Dehydration Status: Acute (3) Rhabdomyolysis Status: Acute Current Medications Current Medications Current Medications Fentanyl Citrate 50 mcg 50 mcg PRN Q15MIN PRN IV PAIN GREATER THAN 3/10 Last administered on 10/09/16 13:56; Start 10/09/16 at 13:45; Stop 10/10/16 at 13:44 Sodium Chloride (Iv Sodium Chloride 0.9% 1000ml Bag) 1,000 ml @ 1,000 mls/hr Q1H IV Last administered on 10/09/16 13:57; Start 10/09/16 at 13:40; Stop at 14:39; Status DC Ondansetron HCl (Zofran) 4 mg 1X ONCE IV Last administered on 10/09/16 13:55; Start 10/09/16 at 13:45; Stop 10/09/16 at 13:46; Status DC Famotidine 20 mg 20 mg 1X ONCE IVP Last administered on 10/09/16 13:56; Start 10/09/16 at 13:45; Stop 10/09/16 at 13:46; Status DC Sodium Chloride (Iv Sodium Chloride 0.9% 1000ml Bag) 1,000 ml @ 1,000 mls/hr 1X ONCE IV Last administered on 10/09/16 14:50; Start 10/09/16 at 15:00; Stop 10/09/16 at 15:59; Status DC Ondansetron HCl (Zofran) 4 mg PRN Q8HRS PRN IV NAUSEA/VOMITING; Start 10/09/16 at 14:45; Stop 10/10/16 at 14:44; Status UNV Fentanyl Citrate 50 mcg 50 mcg PRN Q2HR PRN IV PAIN; Start 10/09/16 at 14:45; Stop 10/10/16 at 14:44; Status UNV Sodium Chloride (Iv Sodium Chloride 0.9% 1000ml Bag) 1,000 ml @ 125 mls/hr Q8H IV ; Start 10/09/16 at 14:40; Stop 10/10/16 at 14:39; Status UNV Ondansetron HCl (Zofran) 4 mg PRN Q8HRS PRN IV NAUSEA/VOMITING; Start 10/09/16 at 14:45; Stop 10/10/16 at 14:44 Fentanyl Citrate 50 mcg 50 mcg PRN Q2HR PRN IV PAIN Last administered on 19:57; Start 10/09/16 at 14:45; Stop 10/11/16 at 15:45 Sodium Chloride (Iv Sodium Chloride 0.9% 1000ml Bag) 1,000 ml @ 200 mls/hr Q5H IV Last administered on 10/10/16 03:35; Start 10/09/16 at 14:45; Stop 10/10/16 at 14:44 Acetaminophen (Tylenol) 650 mg PRN Q4HRS PRN PO FEVER; Start 10/09/16 at 14:45; Stop 10/10/16 at 14:44 Iohexol (Omnipaque 300 Mg/ml) 75 ml 1X ONCE IV Last administered on 10/09/16 15:26; Start 10/09/16 at 15:15; Stop 10/09/16 at 15:16; Status DC Info (Do NOT chart on this entry -- for MONITORING) 1 each PRN DAILY PRN MC SEE COMMENTS; Start 10/09/16 at 15:15; Stop 10/11/16 at 15:14 Allergies Allergies: Coded Allergies: No Known Drug Allergies (Unverified , 01/03/14) ROS Review of System -ve x for hpi Physical Exam Physical Exam GEN: Awake, Oriented x 3, In no distress EYES: Vision Unchanged, Conjunctiva Normal EN: No EN Drainage, Mucous Membranes m oist NECK: no JVD, no JVP, Supple, no Thyromegaly CVS: S1S2, no Murmur, No Gallop, No Rub,no Edema RESP: no Rales, no Rhonchi,no Acc. Muscle Use GI: BS + ve, NO Bruit, Non Tender, Non Distended : no CVA tenderness, no Suprapubic Tenderness Vital Signs Vital Signs Date Time Temp Pulse Resp B/P Pulse Ox O2 Delivery O2 Flow Rate FiO2 10/10/16 07:00 107/60 10/10/16 07:00 98.1 66 18 97 Room Air 98.1 Assessment & Plan Rhabdo - without JUDITH - (? due to ETOHism, Poor O intake recently, Flu like s/s and ? dehdyraton) CK better with IVF. Labs Labs Laboratory Tests Test 10/09/16 12:50 10/09/16 13:04 10/09/16 17:15 10/10/16 04:20 Urine Collection Type Unknown Urine Color Merissa Urine Clarity Clear Urine pH 6.5 Urine Specific Justin >=1.030 Urine Protein >=300mg/dL (NEG-TRACE) Urine Glucose (UA) Negativemg/dL (NEG) Urine Ketones (Stick) >=80mg/dL (NEG) Urine Blood Large (NEG) Urine Nitrite (NEG) Urine Bilirubin Large (NEG) Urine Urobilinogen Dipstick 1.0mg/dL (0.2 mg/dL) Urine Leukocyte Esterase (NEG) Urine RBC Occ/HPF (0-2) Urine WBC 5-10/HPF (0-4) Urine Amorphous Sediment Present/HPF Urine Bacteria Few/HPF (0-FEW) Urine Hyaline Casts Many/HPF Urine Granular Casts Few/HPF Urine Mucus Mod/LPF White Blood Count 4.7x10^3/uL (4.0-11.0) 5.2x10^3/uL (4.0-11.0) Red Blood Count 5.69x10^6/uL (4.30-5.70) 4.19x10^6/uL (4.30-5.70) Hemoglobin 16.7g/dL (13.0-17.5) 12.4g/dL (13.0-17.5) Hematocrit 50.5% (39.0-53.0) 37.3% (39.0-53.0) Mean Corpuscular Volume 89fL (79-100) 89fL (79-100) Mean Corpuscular Hemoglobin 29pg (25-35) 30pg (25-35) Mean Corpuscular Hemoglobin Concent 33g/dL (31-37) 33g/dL (31-37) Red Cell Distribution Width 12.9% (11.5-14.5) 12.9% (11.5-14.5) Platelet Count 93x10^3/uL (140-400) 87x10^3/uL (140-400) Neutrophils (%) (Auto) 52% (31-73) 59% (31-73) Lymphocytes (%) (Auto) 37% (24-48) 30% (24-48) Monocytes (%) (Auto) 10% (0-9) 11% (0-9) Eosinophils (%) (Auto) 0% (0-3) 0% (0-3) Basophils (%) (Auto) 1% (0-3) 0% (0-3) Neutrophils # (Auto) 2.5x10^3uL (1.8-7.7) 3.1x10^3uL (1.8-7.7) Lymphocytes # (Auto) 1.7x10^3/uL (1.0-4.8) 1.5x10^3/uL (1.0-4.8) Monocytes # (Auto) 0.5x10^3/uL (0.0-1.1) 0.6x10^3/uL (0.0-1.1) Eosinophils # (Auto) 0.0x10^3/uL (0.0-0.7) 0.0x10^3/uL (0.0-0.7) Basophils # (Auto) 0.0x10^3/uL (0.0-0.2) 0.0x10^3/uL (0.0-0.2) Platelet Estimate Decreased (ADEQUATE) Giant Platelets Present Spherocytes Present [place] Bodies Present Acanthocytes Present Sodium Level 132mmol/L (136-145) 139mmol/L (136-145) Potassium Level 3.7mmol/L (3.5-5.1) 3.4mmol/L (3.5-5.1) Chloride Level 96mmol/L (98-107) 105mmol/L (98-107) Carbon Dioxide Level 23mmol/L (21-32) 23mmol/L (21-32) Anion Gap 13 (6-14) 11 (6-14) Blood Urea Nitrogen 24mg/dL (8-26) 20mg/dL (8-26) Creatinine 1.1mg/dL (0.7-1.3) 1.0mg/dL (0.7-1.3) Estimated GFR (Cockcroft-Gault) 99.5 111.1 BUN/Creatinine Ratio 22 (6-20) Glucose Level 88mg/dL (70-99) 74mg/dL (70-99) Calcium Level 8.7mg/dL (8.5-10.1) 7.5mg/dL (8.5-10.1) Total Bilirubin 0.8mg/dL (0.2-1.0) 0.7mg/dL (0.2-1.0) Aspartate Amino Transf (AST/SGOT) 470U/L (15-37) 271U/L (15-37) Alanine Aminotransferase (ALT/SGPT) 200U/L (16-63) 122U/L (16-63) Alkaline Phosphatase 79U/L (46-116) 47U/L (46-116) Creatine Kinase 2906U/L (39-308) 1883U/L (39-308) Total Protein 7.3g/dL (6.4-8.2) 4.9g/dL (6.4-8.2) Albumin 2.9g/dL (3.4-5.0) 2.2g/dL (3.4-5.0) Albumin/Globulin Ratio 0.7 (1.0-1.7) Lipase 1638U/L (73-393) 1902U/L (73-393) Acetaminophen Level < 2mcg/ml (10-30) Acetaminophen Last Dose Date Unk Acetaminophen Last Dose Time Unk Cytomegalovirus IgG Antibody 2.30U/mL (0.00-0.59) Cytomegalovirus IgM Antibody <30.0AU/mL (0.0-29.9) Heterophil Agglutinins Negative (NEGATIVE) Erythrocyte Sedimentation Rate 11 (0-15) Direct Bilirubin 0.1mg/dL (0.0-0.2) C-Reactive Protein, Quantitative 7.1mg/L (0-3.3) Laboratory Tests Test 10/09/16 12:50 10/09/16 13:04 10/09/16 17:15 10/10/16 04:20 Urine Collection Type Unknown Urine Color Merissa Urine Clarity Clear Urine pH 6.5 Urine Specific Justin >=1.030 Urine Protein >=300mg/dL (NEG-TRACE) Urine Glucose (UA) Negativemg/dL (NEG) Urine Ketones (Stick) >=80mg/dL (NEG) Urine Blood Large (NEG) Urine Nitrite (NEG) Urine Bilirubin Large (NEG) Urine Urobilinogen Dipstick 1.0mg/dL (0.2 mg/dL) Urine Leukocyte Esterase (NEG) Urine RBC Occ/HPF (0-2) Urine WBC 5-10/HPF (0-4) Urine Amorphous Sediment Present/HPF Urine Bacteria Few/HPF (0-FEW) Urine Hyaline Casts Many/HPF Urine Granular Casts Few/HPF Urine Mucus Mod/LPF White Blood Count 4.7x10^3/uL (4.0-11.0) 5.2x10^3/uL (4.0-11.0) Red Blood Count 5.69x10^6/uL (4.30-5.70) 4.19x10^6/uL (4.30-5.70) Hemoglobin 16.7g/dL (13.0-17.5) 12.4g/dL (13.0-17.5) Hematocrit 50.5% (39.0-53.0) 37.3% (39.0-53.0) Mean Corpuscular Volume 89fL (79-100) 89fL (79-100) Mean Corpuscular Hemoglobin 29pg (25-35) 30pg (25-35) Mean Corpuscular Hemoglobin Concent 33g/dL (31-37) 33g/dL (31-37) Red Cell Distribution Width 12.9% (11.5-14.5) 12.9% (11.5-14.5) Platelet Count 93x10^3/uL (140-400) 87x10^3/uL (140-400) Neutrophils (%) (Auto) 52% (31-73) 59% (31-73) Lymphocytes (%) (Auto) 37% (24-48) 30% (24-48) Monocytes (%) (Auto) 10% (0-9) 11% (0-9) Eosinophils (%) (Auto) 0% (0-3) 0% (0-3) Basophils (%) (Auto) 1% (0-3) 0% (0-3) Neutrophils # (Auto) 2.5x10^3uL (1.8-7.7) 3.1x10^3uL (1.8-7.7) Lymphocytes # (Auto) 1.7x10^3/uL (1.0-4.8) 1.5x10^3/uL (1.0-4.8) Monocytes # (Auto) 0.5x10^3/uL (0.0-1.1) 0.6x10^3/uL (0.0-1.1) Eosinophils # (Auto) 0.0x10^3/uL (0.0-0.7) 0.0x10^3/uL (0.0-0.7) Basophils # (Auto) 0.0x10^3/uL (0.0-0.2) 0.0x10^3/uL (0.0-0.2) Platelet Estimate Decreased (ADEQUATE) Giant Platelets Present Spherocytes Present [place] Bodies Present Acanthocytes Present Sodium Level 132mmol/L (136-145) 139mmol/L (136-145) Potassium Level 3.7mmol/L (3.5-5.1) 3.4mmol/L (3.5-5.1) Chloride Level 96mmol/L (98-107) 105mmol/L (98-107) Carbon Dioxide Level 23mmol/L (21-32) 23mmol/L (21-32) Anion Gap 13 (6-14) 11 (6-14) Blood Urea Nitrogen 24mg/dL (8-26) 20mg/dL (8-26) Creatinine 1.1mg/dL (0.7-1.3) 1.0mg/dL (0.7-1.3) Estimated GFR (Cockcroft-Gault) 99.5 111.1 BUN/Creatinine Ratio 22 (6-20) Glucose Level 88mg/dL (70-99) 74mg/dL (70-99) Calcium Level 8.7mg/dL (8.5-10.1) 7.5mg/dL (8.5-10.1) Total Bilirubin 0.8mg/dL (0.2-1.0) 0.7mg/dL (0.2-1.0) Aspartate Amino Transf (AST/SGOT) 470U/L (15-37) 271U/L (15-37) Alanine Aminotransferase (ALT/SGPT) 200U/L (16-63) 122U/L (16-63) Alkaline Phosphatase 79U/L (46-116) 47U/L (46-116) Creatine Kinase 2906U/L (39-308) 1883U/L (39-308) Total Protein 7.3g/dL (6.4-8.2) 4.9g/dL (6.4-8.2) Albumin 2.9g/dL (3.4-5.0) 2.2g/dL (3.4-5.0) Albumin/Globulin Ratio 0.7 (1.0-1.7) Lipase 1638U/L (73-393) 1902U/L (73-393) Acetaminophen Level < 2mcg/ml (10-30) Acetaminophen Last Dose Date Unk Acetaminophen Last Dose Time Unk Cytomegalovirus IgG Antibody 2.30U/mL (0.00-0.59) Cytomegalovirus IgM Antibody <30.0AU/mL (0.0-29.9) Heterophil Agglutinins Negative (NEGATIVE) Erythrocyte Sedimentation Rate 11 (0-15) Direct Bilirubin 0.1mg/dL (0.0-0.2) C-Reactive Protein, Quantitative 7.1mg/L (0-3.3) NANCY PATTERSON MD Oct 10, 2016 09:55
[2016-10-10] MEDS ORDERED: POTASSIUM CHLORIDE 20MEQ 50 ML IV SCH (10:15)
[2016-10-10] MEDS ORDERED: ONDANSETRON PF 4 MG/2 ML VIAL. IV PRN (10:15)
[2016-10-10 11:00] VITALS: BP 116/68
[2016-10-10] MEDS ORDERED: MORPHINE SULFATE 2 MG/ML DISP.SYRIN. IV PRN (12:15)
--- NOTE | 2016-10-10 12:15 | PDOC ---
PROGRESS NOTES Chief Complaint Chief Complaint pancreatitis 2/2 alcohol likely transaminitis 2/2 alcohol likely Rhabdomyolisis hyponatemia, hypovolemic HYPOKALEMIA low albumin 2/2 liver dz plan: 1. fu with renal, gi 2. hepatitis penal pending 3. CONT ivf NPO DVT , GI PPX abd CT, US ok lipase daily History of Present Illness History of Present Illness STILL NAUSEA MIDDLE ABD PAIN HIGHER lipase better CK Vitals Vitals Vital Signs Date Time Temp Pulse Resp B/P Pulse Ox O2 Delivery O2 Flow Rate FiO2 10/10/16 08:00 Room Air 10/10/16 07:00 107/60 10/10/16 07:00 98.1 66 18 97 98.1 Physical Exam General: Alert, Oriented X3, Cooperative, mild distress Abdomen: Normal bowel sounds, Soft (tender, no guarding, no peritoneal, ) Extremities: No clubbing, No cyanosis, No edema, Normal pulses Skin: No breakdown Labs LABS Laboratory Tests Test 10/09/16 12:50 10/09/16 13:04 10/09/16 17:15 10/10/16 04:20 Urine Collection Type Unknown Urine Color Merissa Urine Clarity Clear Urine pH 6.5 Urine Specific [place] >=1.030 Urine Protein >=300mg/dL (NEG-TRACE) Urine Glucose (UA) Negativemg/dL (NEG) Urine Ketones (Stick) >=80mg/dL (NEG) Urine Blood Large (NEG) Urine Nitrite (NEG) Urine Bilirubin Large (NEG) Urine Urobilinogen Dipstick 1.0mg/dL (0.2 mg/dL) Urine Leukocyte Esterase (NEG) Urine RBC Occ/HPF (0-2) Urine WBC 5-10/HPF (0-4) Urine Amorphous Sediment Present/HPF Urine Bacteria Few/HPF (0-FEW) Urine Hyaline Casts Many/HPF Urine Granular Casts Few/HPF Urine Mucus Mod/LPF White Blood Count 4.7x10^3/uL (4.0-11.0) 5.2x10^3/uL (4.0-11.0) Red Blood Count 5.69x10^6/uL (4.30-5.70) 4.19x10^6/uL (4.30-5.70) Hemoglobin 16.7g/dL (13.0-17.5) 12.4g/dL (13.0-17.5) Hematocrit 50.5% (39.0-53.0) 37.3% (39.0-53.0) Mean Corpuscular Volume 89fL (79-100) 89fL (79-100) Mean Corpuscular Hemoglobin 29pg (25-35) 30pg (25-35) Mean Corpuscular Hemoglobin Concent 33g/dL (31-37) 33g/dL (31-37) Red Cell Distribution Width 12.9% (11.5-14.5) 12.9% (11.5-14.5) Platelet Count 93x10^3/uL (140-400) 87x10^3/uL (140-400) Neutrophils (%) (Auto) 52% (31-73) 59% (31-73) Lymphocytes (%) (Auto) 37% (24-48) 30% (24-48) Monocytes (%) (Auto) 10% (0-9) 11% (0-9) Eosinophils (%) (Auto) 0% (0-3) 0% (0-3) Basophils (%) (Auto) 1% (0-3) 0% (0-3) Neutrophils # (Auto) 2.5x10^3uL (1.8-7.7) 3.1x10^3uL (1.8-7.7) Lymphocytes # (Auto) 1.7x10^3/uL (1.0-4.8) 1.5x10^3/uL (1.0-4.8) Monocytes # (Auto) 0.5x10^3/uL (0.0-1.1) 0.6x10^3/uL (0.0-1.1) Eosinophils # (Auto) 0.0x10^3/uL (0.0-0.7) 0.0x10^3/uL (0.0-0.7) Basophils # (Auto) 0.0x10^3/uL (0.0-0.2) 0.0x10^3/uL (0.0-0.2) Platelet Estimate Decreased (ADEQUATE) Giant Platelets Present Spherocytes Present [place] Bodies Present Acanthocytes Present Sodium Level 132mmol/L (136-145) 139mmol/L (136-145) Potassium Level 3.7mmol/L (3.5-5.1) 3.4mmol/L (3.5-5.1) Chloride Level 96mmol/L (98-107) 105mmol/L (98-107) Carbon Dioxide Level 23mmol/L (21-32) 23mmol/L (21-32) Anion Gap 13 (6-14) 11 (6-14) Blood Urea Nitrogen 24mg/dL (8-26) 20mg/dL (8-26) Creatinine 1.1mg/dL (0.7-1.3) 1.0mg/dL (0.7-1.3) Estimated GFR (Cockcroft-Gault) 99.5 111.1 BUN/Creatinine Ratio 22 (6-20) Glucose Level 88mg/dL (70-99) 74mg/dL (70-99) Calcium Level 8.7mg/dL (8.5-10.1) 7.5mg/dL (8.5-10.1) Total Bilirubin 0.8mg/dL (0.2-1.0) 0.7mg/dL (0.2-1.0) Aspartate Amino Transf (AST/SGOT) 470U/L (15-37) 271U/L (15-37) Alanine Aminotransferase (ALT/SGPT) 200U/L (16-63) 122U/L (16-63) Alkaline Phosphatase 79U/L (46-116) 47U/L (46-116) Creatine Kinase 2906U/L (39-308) 1883U/L (39-308) Total Protein 7.3g/dL (6.4-8.2) 4.9g/dL (6.4-8.2) Albumin 2.9g/dL (3.4-5.0) 2.2g/dL (3.4-5.0) Albumin/Globulin Ratio 0.7 (1.0-1.7) Lipase 1638U/L (73-393) 1902U/L (73-393) Acetaminophen Level < 2mcg/ml (10-30) Acetaminophen Last Dose Date Unk Acetaminophen Last Dose Time Unk Cytomegalovirus IgG Antibody 2.30U/mL (0.00-0.59) Cytomegalovirus IgM Antibody <30.0AU/mL (0.0-29.9) Heterophil Agglutinins Negative (NEGATIVE) Erythrocyte Sedimentation Rate 11 (0-15) Direct Bilirubin 0.1mg/dL (0.0-0.2) C-Reactive Protein, Quantitative 7.1mg/L (0-3.3) Review of Systems Review of Systems no fever, chills, sob or chest pain Assessment and Plan Assessmemt and Plan Problems Medical Problems: (1) Acute pancreatitis Status: Acute (2) Dehydration Status: Acute (3) Rhabdomyolysis Status: Acute Problems: Comment Review of Relevant I have reviewed the following items albino (where applicable) has been applied. Labs Laboratory Tests Test 10/09/16 12:50 10/09/16 13:04 10/09/16 17:15 10/10/16 04:20 Urine Collection Type Unknown Urine Color Merissa Urine Clarity Clear Urine pH 6.5 Urine Specific [place] >=1.030 Urine Protein >=300mg/dL (NEG-TRACE) Urine Glucose (UA) Negativemg/dL (NEG) Urine Ketones (Stick) >=80mg/dL (NEG) Urine Blood Large (NEG) Urine Nitrite (NEG) Urine Bilirubin Large (NEG) Urine Urobilinogen Dipstick 1.0mg/dL (0.2 mg/dL) Urine Leukocyte Esterase (NEG) Urine RBC Occ/HPF (0-2) Urine WBC 5-10/HPF (0-4) Urine Amorphous Sediment Present/HPF Urine Bacteria Few/HPF (0-FEW) Urine Hyaline Casts Many/HPF Urine Granular Casts Few/HPF Urine Mucus Mod/LPF White Blood Count 4.7x10^3/uL (4.0-11.0) 5.2x10^3/uL (4.0-11.0) Red Blood Count 5.69x10^6/uL (4.30-5.70) 4.19x10^6/uL (4.30-5.70) Hemoglobin 16.7g/dL (13.0-17.5) 12.4g/dL (13.0-17.5) Hematocrit 50.5% (39.0-53.0) 37.3% (39.0-53.0) Mean Corpuscular Volume 89fL (79-100) 89fL (79-100) Mean Corpuscular Hemoglobin 29pg (25-35) 30pg (25-35) Mean Corpuscular Hemoglobin Concent 33g/dL (31-37) 33g/dL (31-37) Red Cell Distribution Width 12.9% (11.5-14.5) 12.9% (11.5-14.5) Platelet Count 93x10^3/uL (140-400) 87x10^3/uL (140-400) Neutrophils (%) (Auto) 52% (31-73) 59% (31-73) Lymphocytes (%) (Auto) 37% (24-48) 30% (24-48) Monocytes (%) (Auto) 10% (0-9) 11% (0-9) Eosinophils (%) (Auto) 0% (0-3) 0% (0-3) Basophils (%) (Auto) 1% (0-3) 0% (0-3) Neutrophils # (Auto) 2.5x10^3uL (1.8-7.7) 3.1x10^3uL (1.8-7.7) Lymphocytes # (Auto) 1.7x10^3/uL (1.0-4.8) 1.5x10^3/uL (1.0-4.8) Monocytes # (Auto) 0.5x10^3/uL (0.0-1.1) 0.6x10^3/uL (0.0-1.1) Eosinophils # (Auto) 0.0x10^3/uL (0.0-0.7) 0.0x10^3/uL (0.0-0.7) Basophils # (Auto) 0.0x10^3/uL (0.0-0.2) 0.0x10^3/uL (0.0-0.2) Platelet Estimate Decreased (ADEQUATE) Giant Platelets Present Spherocytes Present [place] Bodies Present Acanthocytes Present Sodium Level 132mmol/L (136-145) 139mmol/L (136-145) Potassium Level 3.7mmol/L (3.5-5.1) 3.4mmol/L (3.5-5.1) Chloride Level 96mmol/L (98-107) 105mmol/L (98-107) Carbon Dioxide Level 23mmol/L (21-32) 23mmol/L (21-32) Anion Gap 13 (6-14) 11 (6-14) Blood Urea Nitrogen 24mg/dL (8-26) 20mg/dL (8-26) Creatinine 1.1mg/dL (0.7-1.3) 1.0mg/dL (0.7-1.3) Estimated GFR (Cockcroft-Gault) 99.5 111.1 BUN/Creatinine Ratio 22 (6-20) Glucose Level 88mg/dL (70-99) 74mg/dL (70-99) Calcium Level 8.7mg/dL (8.5-10.1) 7.5mg/dL (8.5-10.1) Total Bilirubin 0.8mg/dL (0.2-1.0) 0.7mg/dL (0.2-1.0) Aspartate Amino Transf (AST/SGOT) 470U/L (15-37) 271U/L (15-37) Alanine Aminotransferase (ALT/SGPT) 200U/L (16-63) 122U/L (16-63) Alkaline Phosphatase 79U/L (46-116) 47U/L (46-116) Creatine Kinase 2906U/L (39-308) 1883U/L (39-308) Total Protein 7.3g/dL (6.4-8.2) 4.9g/dL (6.4-8.2) Albumin 2.9g/dL (3.4-5.0) 2.2g/dL (3.4-5.0) Albumin/Globulin Ratio 0.7 (1.0-1.7) Lipase 1638U/L (73-393) 1902U/L (73-393) Acetaminophen Level < 2mcg/ml (10-30) Acetaminophen Last Dose Date Unk Acetaminophen Last Dose Time Unk Cytomegalovirus IgG Antibody 2.30U/mL (0.00-0.59) Cytomegalovirus IgM Antibody <30.0AU/mL (0.0-29.9) Heterophil Agglutinins Negative (NEGATIVE) Erythrocyte Sedimentation Rate 11 (0-15) Direct Bilirubin 0.1mg/dL (0.0-0.2) C-Reactive Protein, Quantitative 7.1mg/L (0-3.3) Laboratory Tests Test 10/09/16 12:50 10/09/16 13:04 10/09/16 17:15 10/10/16 04:20 Urine Collection Type Unknown Urine Color Merissa Urine Clarity Clear Urine pH 6.5 Urine Specific [place] >=1.030 Urine Protein >=300mg/dL (NEG-TRACE) Urine Glucose (UA) Negativemg/dL (NEG) Urine Ketones (Stick) >=80mg/dL (NEG) Urine Blood Large (NEG) Urine Nitrite (NEG) Urine Bilirubin Large (NEG) Urine Urobilinogen Dipstick 1.0mg/dL (0.2 mg/dL) Urine Leukocyte Esterase (NEG) Urine RBC Occ/HPF (0-2) Urine WBC 5-10/HPF (0-4) Urine Amorphous Sediment Present/HPF Urine Bacteria Few/HPF (0-FEW) Urine Hyaline Casts Many/HPF Urine Granular Casts Few/HPF Urine Mucus Mod/LPF White Blood Count 4.7x10^3/uL (4.0-11.0) 5.2x10^3/uL (4.0-11.0) Red Blood Count 5.69x10^6/uL (4.30-5.70) 4.19x10^6/uL (4.30-5.70) Hemoglobin 16.7g/dL (13.0-17.5) 12.4g/dL (13.0-17.5) Hematocrit 50.5% (39.0-53.0) 37.3% (39.0-53.0) Mean Corpuscular Volume 89fL (79-100) 89fL (79-100) Mean Corpuscular Hemoglobin 29pg (25-35) 30pg (25-35) Mean Corpuscular Hemoglobin Concent 33g/dL (31-37) 33g/dL (31-37) Red Cell Distribution Width 12.9% (11.5-14.5) 12.9% (11.5-14.5) Platelet Count 93x10^3/uL (140-400) 87x10^3/uL (140-400) Neutrophils (%) (Auto) 52% (31-73) 59% (31-73) Lymphocytes (%) (Auto) 37% (24-48) 30% (24-48) Monocytes (%) (Auto) 10% (0-9) 11% (0-9) Eosinophils (%) (Auto) 0% (0-3) 0% (0-3) Basophils (%) (Auto) 1% (0-3) 0% (0-3) Neutrophils # (Auto) 2.5x10^3uL (1.8-7.7) 3.1x10^3uL (1.8-7.7) Lymphocytes # (Auto) 1.7x10^3/uL (1.0-4.8) 1.5x10^3/uL (1.0-4.8) Monocytes # (Auto) 0.5x10^3/uL (0.0-1.1) 0.6x10^3/uL (0.0-1.1) Eosinophils # (Auto) 0.0x10^3/uL (0.0-0.7) 0.0x10^3/uL (0.0-0.7) Basophils # (Auto) 0.0x10^3/uL (0.0-0.2) 0.0x10^3/uL (0.0-0.2) Platelet Estimate Decreased (ADEQUATE) Giant Platelets Present Spherocytes Present [place] Bodies Present Acanthocytes Present Sodium Level 132mmol/L (136-145) 139mmol/L (136-145) Potassium Level 3.7mmol/L (3.5-5.1) 3.4mmol/L (3.5-5.1) Chloride Level 96mmol/L (98-107) 105mmol/L (98-107) Carbon Dioxide Level 23mmol/L (21-32) 23mmol/L (21-32) Anion Gap 13 (6-14) 11 (6-14) Blood Urea Nitrogen 24mg/dL (8-26) 20mg/dL (8-26) Creatinine 1.1mg/dL (0.7-1.3) 1.0mg/dL (0.7-1.3) Estimated GFR (Cockcroft-Gault) 99.5 111.1 BUN/Creatinine Ratio 22 (6-20) Glucose Level 88mg/dL (70-99) 74mg/dL (70-99) Calcium Level 8.7mg/dL (8.5-10.1) 7.5mg/dL (8.5-10.1) Total Bilirubin 0.8mg/dL (0.2-1.0) 0.7mg/dL (0.2-1.0) Aspartate Amino Transf (AST/SGOT) 470U/L (15-37) 271U/L (15-37) Alanine Aminotransferase (ALT/SGPT) 200U/L (16-63) 122U/L (16-63) Alkaline Phosphatase 79U/L (46-116) 47U/L (46-116) Creatine Kinase 2906U/L (39-308) 1883U/L (39-308) Total Protein 7.3g/dL (6.4-8.2) 4.9g/dL (6.4-8.2) Albumin 2.9g/dL (3.4-5.0) 2.2g/dL (3.4-5.0) Albumin/Globulin Ratio 0.7 (1.0-1.7) Lipase 1638U/L (73-393) 1902U/L (73-393) Acetaminophen Level < 2mcg/ml (10-30) Acetaminophen Last Dose Date Unk Acetaminophen Last Dose Time Unk Cytomegalovirus IgG Antibody 2.30U/mL (0.00-0.59) Cytomegalovirus IgM Antibody <30.0AU/mL (0.0-29.9) Heterophil Agglutinins Negative (NEGATIVE) Erythrocyte Sedimentation Rate 11 (0-15) Direct Bilirubin 0.1mg/dL (0.0-0.2) C-Reactive Protein, Quantitative 7.1mg/L (0-3.3) Medications Current Medications Fentanyl Citrate 50 mcg 50 mcg PRN Q15MIN PRN IV PAIN GREATER THAN 3/10 Last administered on 10/09/16 13:56; Start 10/09/16 at 13:45; Stop 10/10/16 at 10:27; Status DC Sodium Chloride (Iv Sodium Chloride 0.9% 1000ml Bag) 1,000 ml @ 1,000 mls/hr Q1H IV Last administered on 10/09/16 13:57; Start 10/09/16 at 13:40; Stop at 14:39; Status DC Ondansetron HCl (Zofran) 4 mg 1X ONCE IV Last administered on 10/09/16 13:55; Start 10/09/16 at 13:45; Stop 10/09/16 at 13:46; Status DC Famotidine 20 mg 20 mg 1X ONCE IVP Last administered on 10/09/16 13:56; Start 10/09/16 at 13:45; Stop 10/09/16 at 13:46; Status DC Sodium Chloride (Iv Sodium Chloride 0.9% 1000ml Bag) 1,000 ml @ 1,000 mls/hr 1X ONCE IV Last administered on 10/09/16 14:50; Start 10/09/16 at 15:00; Stop 10/09/16 at 15:59; Status DC Ondansetron HCl (Zofran) 4 mg PRN Q8HRS PRN IV NAUSEA/VOMITING; Start 10/09/16 at 14:45; Stop 10/10/16 at 14:44; Status UNV Fentanyl Citrate 50 mcg 50 mcg PRN Q2HR PRN IV PAIN; Start 10/09/16 at 14:45; Stop 10/10/16 at 14:44; Status UNV Sodium Chloride (Iv Sodium Chloride 0.9% 1000ml Bag) 1,000 ml @ 125 mls/hr Q8H IV ; Start 10/09/16 at 14:40; Stop 10/10/16 at 14:39; Status UNV Ondansetron HCl (Zofran) 4 mg PRN Q8HRS PRN IV NAUSEA/VOMITING; Start 10/09/16 at 14:45; Stop 10/10/16 at 10:27; Status DC Fentanyl Citrate 50 mcg 50 mcg PRN Q2HR PRN IV PAIN Last administered on 19:57; Start 10/09/16 at 14:45; Stop 10/11/16 at 15:45 Sodium Chloride (Iv Sodium Chloride 0.9% 1000ml Bag) 1,000 ml @ 200 mls/hr Q5H IV Last administered on 10/10/16 03:35; Start 10/09/16 at 14:45; Stop 10/10/16 at 10:00; Status DC Acetaminophen (Tylenol) 650 mg PRN Q4HRS PRN PO FEVER; Start 10/09/16 at 14:45; Stop 10/10/16 at 10:27; Status DC Iohexol (Omnipaque 300 Mg/ml) 75 ml 1X ONCE IV Last administered on 10/09/16 15:26; Start 10/09/16 at 15:15; Stop 10/09/16 at 15:16; Status DC Info 1 each 1 each PRN DAILY PRN MC SEE COMMENTS; Start 10/09/16 at 15:15; Stop 10/11/16 at 15:14 Potassium Acetate/ Sodium Chloride (Iv Sodium Chloride 0.9% 1000ml Bag) 1,020 ml @ 200 mls/hr Q5H6M IV ; Start 10/10/16 at 10:30; Stop 10/10/16 at 20:29 Acetaminophen (Tylenol) 650 mg PRN Q6HRS PRN PO MILD PAIN / TEMP; Start at 10:15 Ondansetron HCl 4 mg 4 mg PRN Q6HRS PRN IV NAUSEA/VOMITING; Start 10/10/16 at 10 :15 Sodium Chloride 1,000 ml @ 150 mls/hr Q6H40M IV Last administered on 10/10/16 10:53; Start 10/10/16 at 10:15 Potassium Chloride 50 ml @ 50 mls/hr Q1H IV ; Start 10/10/16 at 10:15; Stop at 12:14; Status UNV Potassium Chloride (KCl Premix 10meq) 100 ml @ 100 mls/hr Q1H IV ; Start at 11:00; Stop 10/10/16 at 14:59 Pantoprazole Sodium (Protonix) 40 mg DAILYAC PO ; Start 10/10/16 at 10:30 Vitals/I & O Vital Sign - Last 24 Hours 10/09/16 10/09/16 10/09/16 10/09/16 12:50 13:56 14:25 14:50 Temp 98.7 98.7 Pulse 96 77 Resp 20 20 18 17 B/P 113/76 122/81 Pulse Ox 97 97 O2 Delivery Room Air Room Air 10/09/16 10/09/16 10/09/16 10/09/16 15:00 16:00 17:53 19:50 Temp 98.4 98.4 Pulse 74 72 62 Resp 19 18 20 B/P 116/76 118/74 120/65 Pulse Ox 96 99 98 O2 Delivery Room Air Room Air 10/09/16 10/09/16 10/09/16 10/10/16 19:57 20:00 23:16 03:26 Temp 97.7 98.6 97.7 98.6 Pulse 64 66 Resp 18 18 18 B/P 120/72 113/60 Pulse Ox 97 96 O2 Delivery Room Air Room Air Room Air Room Air 10/10/16 10/10/16 10/10/16 07:00 07:00 08:00 Temp 98.1 98.1 Pulse 66 Resp 18 B/P 99/54 107/60 Pulse Ox 97 O2 Delivery Room Air Room Air Intake and Output 10/09/16 10/09/16 10/10/16 15:00 23:00 07:00 Intake Total 2250 ml 330 ml Balance 2250 ml 330 ml LAM LOPEZ MD Oct 10, 2016 12:15
[2016-10-10 13:20] LABS: HEP A IGM ABDY Negative (Negative)
[2016-10-10 15:00] VITALS: BP 104/52
[2016-10-10] MEDS: HYDROCODONE/APAP 5/325MG TABLET. PO PRN ×2 (17:17→21:08)
[2016-10-10] MEDS: PANTOPRAZOLE 40 MG TABLET. PO SCH (17:17)
[2016-10-10] MEDS: POTASSIUM ACETATE 40 MEQ in IV NORMAL SALINE 1000ML BAG 1,000 ML IV SCH (17:17)
[2016-10-10] MEDS: POTASSIUM CHLORIDE 10MEQ 100 ML IV SCH ×4 (17:23→23:32)
[2016-10-10 19:00] VITALS: BP 114/62
[2016-10-10 23:55] VITALS: BP 105/50
--- NOTE | 2016-10-11 00:01 | CONS ---
DATE OF CONSULTATION: 10/09/2016 PRIMARY PHYSICIAN: Dr. Clark. REASON FOR CONSULTATION: Rhabdomyolysis. HISTORY OF PRESENT ILLNESS: The patient is a pleasant 26-year-old -[place] gentleman who presented to the ER with abdominal pain, this has been going on for about a week. He does have nausea, vomiting associated, he had not been eating well. He has been sick for the past 2 weeks, he was seen at a week ago. He has been taking pain pills. He told the ER that he was taking Tylenol; however, he tells me he was taking some Advil too. In this setting, he was admitted to the hospital for further evaluation. His CK was found to be 2900. LFTs were mildly elevated. Lipase was 1638. We were asked to see him for rhabdomyolysis. He does have some muscle aches, pains. PAST MEDICAL HISTORY: Negative by his reports. His pancreatitis is being evaluated by GI. For rest of the details, see electronic records. NANCY PATTERSON MD DR: KAIN/ino JOB#: [id number] / [id number]
[2016-10-11 03:40] VITALS: BP 93/56
[2016-10-11] MEDS: POTASSIUM ACETATE 40 MEQ in IV NORMAL SALINE 1000ML BAG 1,000 ML IV SCH (03:56)
[2016-10-11 05:40] LABS: BARBITURATES NEG (NEG); BENZODIAZEPINES NEG (NEG); CANNABINOIDS POS (NEG); COCAINE NEG (NEG); METHADONE NEG (NEG); OPIATES POS (NEG); PHENCYCLIDINE NEG (NEG)
[2016-10-11 05:44] LABS: ETHANOL, URINE NEG (NEG)
[2016-10-11 06:01] LABS: BILIRUBIN,URINE NEGATIVE (NEG); GLUCOSE,URINE NEGATIVE (NEG); NITRITE,URINE NEGATIVE (NEG); PROTEIN,URINE 100 mg/dL (NEG-TRACE)
[2016-10-11 06:07] LABS: ALBUMIN 2.2 g/dL (3.4-5.0); CALCIUM 7.7 mg/dL (8.5-10.1); CREATININE 0.8 mg/dL (0.7-1.3); GFR 143.7; POTASSIUM 4.5 mmol/L (3.5-5.1)
[2016-10-11 07:10] LABS: BACTERIA,URINE FEW /HPF (0-FEW)
[2016-10-11 07:25] VITALS: BP 136/78
[2016-10-11] MEDS: PANTOPRAZOLE 40 MG TABLET. PO SCH (07:48)
--- NOTE | 2016-10-11 10:19 | PDOC ---
SUBJECTIVE ROS Rhabdo Doing Better OBJECTIVE Vital Signs Vital Signs Date Time Temp Pulse Resp B/P Pulse Ox O2 Delivery O2 Flow Rate FiO2 10/11/16 07:25 98.8 91 18 136/78 95 Room Air 98.8 I & 0 Intake and Output 10/11/16 07:00 Intake Total 1550 ml Output Total 1950 ml Balance -400 ml Intake Oral 1550 ml Output Urine Total 1950 ml # Voids 2 PHYSICAL EXAM Physical Exam General Appearance: Awake: Alert Oriented x 3 Neck: No JVD or JVP Chest: CTA [place] Heart: S1 S2 Abdomen - Soft NTND Extremities - No Edema DIAGNOSIS/ASSESSMENT Assessment & Plan Rhabdo - better with IVF, ct same until CK < 1000 Problems: COMMENT/RELEVANT DATA Meds Current Medications Medications (Trade) Dose Ordered Sig/Krupa Start Time Stop Time Status Last Admin Dose Admin Acetaminophen (Tylenol) 650 mg PRN Q6HRS PRN 10/10/16 10:15 Acetaminophen/ Hydrocodone Bitart (Lortab 5/325) 1 tab PRN Q4HRS PRN 10/10/16 12:15 10/10/16 21:08 1 TAB Famotidine (Pepcid) 20 mg 1X ONCE 10/09/16 13:45 10/09/16 13:46 DC 10/09/16 13:56 20 MG Fentanyl Citrate (Fentanyl 2ml Vial) 50 mcg PRN Q2HR PRN 10/09/16 14:45 10/10/16 14:44 UNV Fentanyl Citrate 50 mcg 50 mcg PRN Q2HR PRN 10/09/16 14:45 10/11/16 15:45 10/09/16 19:57 50 MCG Info 1 each 1 each PRN DAILY PRN 10/09/16 15:15 10/11/16 15:14 Iohexol (Omnipaque 300 Mg/ml) 75 ml 1X ONCE 10/09/16 15:15 10/09/16 15:16 DC 10/09/16 15:26 75 ML Morphine Sulfate 2 mg PRN Q2HR PRN 10/10/16 12:15 Ondansetron HCl (Zofran) 4 mg PRN Q8HRS PRN 10/09/16 14:45 10/10/16 10:27 DC Ondansetron HCl 4 mg 4 mg PRN Q6HRS PRN 10/10/16 10:15 Pantoprazole Sodium (Protonix) 40 mg DAILYAC 10/10/16 10:30 10/11/16 07:48 40 MG Potassium Acetate/ Sodium Chloride (Iv Sodium Chloride 0.9% 1000ml Bag) 1,020 ml @ 200 mls/hr Q5H6M 10/10/16 10:30 10/10/16 20:29 DC 10/11/16 03:56 200 MLS/HR Potassium Chloride (KCl Premix 10meq) 100 ml @ 100 mls/hr Q1H 10/10/16 11:00 10/10/16 14:59 DC 10/10/16 23:32 100 MLS/HR Sodium Chloride 1,000 ml @ 150 mls/hr Q6H40M 10/10/16 10:15 10/10/16 10:53 150 MLS/HR Sodium Chloride (Iv Sodium Chloride 0.9% 1000ml Bag) 1,000 ml @ 200 mls/hr Q5H 10/09/16 14:45 10/10/16 10:00 DC 10/10/16 03:35 200 MLS/HR Lab Laboratory Tests Test 10/11/16 04:00 10/11/16 04:30 Urine Collection Type Unknown Urine Color Merissa Urine Clarity Clear Urine pH 6.0 Urine Specific [place] 1.010 Urine Protein 100mg/dL (NEG-TRACE) Urine Glucose (UA) Negativemg/dL (NEG) Urine Ketones (Stick) >=80mg/dL (NEG) Urine Blood Large (NEG) Urine Nitrite Negative (NEG) Urine Bilirubin Negative (NEG) Urine Urobilinogen Dipstick 2.0mg/dL (0.2 mg/dL) Urine Leukocyte Esterase Negative (NEG) Urine RBC 1-2/HPF (0-2) Urine WBC 1-4/HPF (0-4) Urine Bacteria Few/HPF (0-FEW) Urine Cellular Casts Occ/HPF Urine Hyaline Casts Few/HPF Urine Granular Casts Occasional/HPF Urine Waxy Casts Occasional/HPF Urine Mucus Slight/LPF Urine Opiates Screen Pos (NEG) Urine Methadone Screen Neg (NEG) Urine Barbiturates Neg (NEG) Urine Phencyclidine Screen Neg (NEG) Urine Amphetamine/Methamphetamine Neg (NEG) Urine Benzodiazepines Screen Neg (NEG) Urine Cocaine Screen Neg (NEG) Urine Cannabinoids Screen Pos (NEG) Urine Ethyl Alcohol Neg (NEG) Sodium Level 143mmol/L (136-145) Potassium Level 4.5mmol/L (3.5-5.1) Chloride Level 110mmol/L (98-107) Carbon Dioxide Level 21mmol/L (21-32) Anion Gap 12 (6-14) Blood Urea Nitrogen 12mg/dL (8-26) Creatinine 0.8mg/dL (0.7-1.3) Estimated GFR (Cockcroft-Gault) 143.7 Glucose Level 67mg/dL (70-99) Calcium Level 7.7mg/dL (8.5-10.1) Phosphorus Level 3.0mg/dL (2.6-4.7) Magnesium Level 2.3mg/dL (1.8-2.4) Creatine Kinase 1484U/L (39-308) Albumin 2.2g/dL (3.4-5.0) NANCY PATTERSON MD Oct 11, 2016 10:19
[2016-10-11 10:39] VITALS: BP 131/78
[2016-10-11] MEDS: IV NORMAL SALINE 1000ML BAG 1,000 ML IV SCH ×2 (10:49→16:52)
--- NOTE | 2016-10-11 13:52 | PDOC ---
PROGRESS NOTES Chief Complaint Chief Complaint pancreatitis 2/2 alcohol likely transaminitis 2/2 alcohol likely Rhabdomyolisis hyponatemia, hypovolemic HYPOKALEMIA low albumin 2/2 liver dz plan: 1. fu with renal, gi 2. hepatitis penal pending 3. CONT ivf clear liquid DVT , GI PPX abd CT, US ok lipase daily onco consult for abnormal blood smear History of Present Illness History of Present Illness nausea, abd pain, gone lipase ,CK better hepatitis panel neg Vitals Vitals Vital Signs Date Time Temp Pulse Resp B/P Pulse Ox O2 Delivery O2 Flow Rate FiO2 10/11/16 10:39 99.0 80 20 131/78 97 Room Air 99.0 Physical Exam General: Alert, Oriented X3, Cooperative, mild distress Abdomen: Normal bowel sounds, Soft (tender, no guarding, no peritoneal, ) Extremities: No clubbing, No cyanosis, No edema, Normal pulses Skin: No breakdown Labs LABS Laboratory Tests Test 10/11/16 04:00 10/11/16 04:30 Urine Collection Type Unknown Urine Color Merissa Urine Clarity Clear Urine pH 6.0 Urine Specific [place] 1.010 Urine Protein 100mg/dL (NEG-TRACE) Urine Glucose (UA) Negativemg/dL (NEG) Urine Ketones (Stick) >=80mg/dL (NEG) Urine Blood Large (NEG) Urine Nitrite Negative (NEG) Urine Bilirubin Negative (NEG) Urine Urobilinogen Dipstick 2.0mg/dL (0.2 mg/dL) Urine Leukocyte Esterase Negative (NEG) Urine RBC 1-2/HPF (0-2) Urine WBC 1-4/HPF (0-4) Urine Bacteria Few/HPF (0-FEW) Urine Cellular Casts Occ/HPF Urine Hyaline Casts Few/HPF Urine Granular Casts Occasional/HPF Urine Waxy Casts Occasional/HPF Urine Mucus Slight/LPF Urine Opiates Screen Pos (NEG) Urine Methadone Screen Neg (NEG) Urine Barbiturates Neg (NEG) Urine Phencyclidine Screen Neg (NEG) Urine Amphetamine/Methamphetamine Neg (NEG) Urine Benzodiazepines Screen Neg (NEG) Urine Cocaine Screen Neg (NEG) Urine Cannabinoids Screen Pos (NEG) Urine Ethyl Alcohol Neg (NEG) Sodium Level 143mmol/L (136-145) Potassium Level 4.5mmol/L (3.5-5.1) Chloride Level 110mmol/L (98-107) Carbon Dioxide Level 21mmol/L (21-32) Anion Gap 12 (6-14) Blood Urea Nitrogen 12mg/dL (8-26) Creatinine 0.8mg/dL (0.7-1.3) Estimated GFR (Cockcroft-Gault) 143.7 Glucose Level 67mg/dL (70-99) Calcium Level 7.7mg/dL (8.5-10.1) Phosphorus Level 3.0mg/dL (2.6-4.7) Magnesium Level 2.3mg/dL (1.8-2.4) Creatine Kinase 1484U/L (39-308) Albumin 2.2g/dL (3.4-5.0) Lipase 1082U/L (73-393) Review of Systems Review of Systems no fever, chills, sob or chest pain Assessment and Plan Assessmemt and Plan Problems Medical Problems: (1) Acute pancreatitis Status: Acute (2) Dehydration Status: Acute (3) Rhabdomyolysis Status: Acute Problems: Comment Review of Relevant I have reviewed the following items albino (where applicable) has been applied. Labs Laboratory Tests Test 10/09/16 17:15 10/10/16 04:20 10/11/16 04:00 10/11/16 04:30 Acetaminophen Level < 2mcg/ml (10-30) Acetaminophen Last Dose Date Unk Acetaminophen Last Dose Time Unk Cytomegalovirus IgG Antibody 2.30U/mL (0.00-0.59) Cytomegalovirus IgM Antibody <30.0AU/mL (0.0-29.9) Heterophil Agglutinins Negative (NEGATIVE) White Blood Count 5.2x10^3/uL (4.0-11.0) Red Blood Count 4.19x10^6/uL (4.30-5.70) Hemoglobin 12.4g/dL (13.0-17.5) Hematocrit 37.3% (39.0-53.0) Mean Corpuscular Volume 89fL (79-100) Mean Corpuscular Hemoglobin 30pg (25-35) Mean Corpuscular Hemoglobin Concent 33g/dL (31-37) Red Cell Distribution Width 12.9% (11.5-14.5) Platelet Count 87x10^3/uL (140-400) Neutrophils (%) (Auto) 59% (31-73) Lymphocytes (%) (Auto) 30% (24-48) Monocytes (%) (Auto) 11% (0-9) Eosinophils (%) (Auto) 0% (0-3) Basophils (%) (Auto) 0% (0-3) Neutrophils # (Auto) 3.1x10^3uL (1.8-7.7) Lymphocytes # (Auto) 1.5x10^3/uL (1.0-4.8) Monocytes # (Auto) 0.6x10^3/uL (0.0-1.1) Eosinophils # (Auto) 0.0x10^3/uL (0.0-0.7) Basophils # (Auto) 0.0x10^3/uL (0.0-0.2) Erythrocyte Sedimentation Rate 11 (0-15) Sodium Level 139mmol/L (136-145) 143mmol/L (136-145) Potassium Level 3.4mmol/L (3.5-5.1) 4.5mmol/L (3.5-5.1) Chloride Level 105mmol/L (98-107) 110mmol/L (98-107) Carbon Dioxide Level 23mmol/L (21-32) 21mmol/L (21-32) Anion Gap 11 (6-14) 12 (6-14) Blood Urea Nitrogen 20mg/dL (8-26) 12mg/dL (8-26) Creatinine 1.0mg/dL (0.7-1.3) 0.8mg/dL (0.7-1.3) Estimated GFR (Cockcroft-Gault) 111.1 143.7 Glucose Level 74mg/dL (70-99) 67mg/dL (70-99) Calcium Level 7.5mg/dL (8.5-10.1) 7.7mg/dL (8.5-10.1) Total Bilirubin 0.7mg/dL (0.2-1.0) Direct Bilirubin 0.1mg/dL (0.0-0.2) Aspartate Amino Transf (AST/SGOT) 271U/L (15-37) Alanine Aminotransferase (ALT/SGPT) 122U/L (16-63) Alkaline Phosphatase 47U/L (46-116) Creatine Kinase 1883U/L (39-308) 1484U/L (39-308) C-Reactive Protein, Quantitative 7.1mg/L (0-3.3) Total Protein 4.9g/dL (6.4-8.2) Albumin 2.2g/dL (3.4-5.0) 2.2g/dL (3.4-5.0) Lipase 1902U/L (73-393) 1082U/L (73-393) Hepatitis A IgM Antibody Negative (Negative) Hepatitis B Surface Antigen Negative (Negative) Hepatitis B Core IgM Antibody Negative (Negative) Hepatitis C Antibody <0.1s/co ratio (0.0-0.9) Urine Collection Type Unknown Urine Color Merissa Urine Clarity Clear Urine pH 6.0 Urine Specific [place] 1.010 Urine Protein 100mg/dL (NEG-TRACE) Urine Glucose (UA) Negativemg/dL (NEG) Urine Ketones (Stick) >=80mg/dL (NEG) Urine Blood Large (NEG) Urine Nitrite Negative (NEG) Urine Bilirubin Negative (NEG) Urine Urobilinogen Dipstick 2.0mg/dL (0.2 mg/dL) Urine Leukocyte Esterase Negative (NEG) Urine RBC 1-2/HPF (0-2) Urine WBC 1-4/HPF (0-4) Urine Bacteria Few/HPF (0-FEW) Urine Cellular Casts Occ/HPF Urine Hyaline Casts Few/HPF Urine Granular Casts Occasional/HPF Urine Waxy Casts Occasional/HPF Urine Mucus Slight/LPF Urine Opiates Screen Pos (NEG) Urine Methadone Screen Neg (NEG) Urine Barbiturates Neg (NEG) Urine Phencyclidine Screen Neg (NEG) Urine Amphetamine/Methamphetamine Neg (NEG) Urine Benzodiazepines Screen Neg (NEG) Urine Cocaine Screen Neg (NEG) Urine Cannabinoids Screen Pos (NEG) Urine Ethyl Alcohol Neg (NEG) Phosphorus Level 3.0mg/dL (2.6-4.7) Magnesium Level 2.3mg/dL (1.8-2.4) Laboratory Tests Test 10/11/16 04:00 10/11/16 04:30 Urine Collection Type Unknown Urine Color Merissa Urine Clarity Clear Urine pH 6.0 Urine Specific [place] 1.010 Urine Protein 100mg/dL (NEG-TRACE) Urine Glucose (UA) Negativemg/dL (NEG) Urine Ketones (Stick) >=80mg/dL (NEG) Urine Blood Large (NEG) Urine Nitrite Negative (NEG) Urine Bilirubin Negative (NEG) Urine Urobilinogen Dipstick 2.0mg/dL (0.2 mg/dL) Urine Leukocyte Esterase Negative (NEG) Urine RBC 1-2/HPF (0-2) Urine WBC 1-4/HPF (0-4) Urine Bacteria Few/HPF (0-FEW) Urine Cellular Casts Occ/HPF Urine Hyaline Casts Few/HPF Urine Granular Casts Occasional/HPF Urine Waxy Casts Occasional/HPF Urine Mucus Slight/LPF Urine Opiates Screen Pos (NEG) Urine Methadone Screen Neg (NEG) Urine Barbiturates Neg (NEG) Urine Phencyclidine Screen Neg (NEG) Urine Amphetamine/Methamphetamine Neg (NEG) Urine Benzodiazepines Screen Neg (NEG) Urine Cocaine Screen Neg (NEG) Urine Cannabinoids Screen Pos (NEG) Urine Ethyl Alcohol Neg (NEG) Sodium Level 143mmol/L (136-145) Potassium Level 4.5mmol/L (3.5-5.1) Chloride Level 110mmol/L (98-107) Carbon Dioxide Level 21mmol/L (21-32) Anion Gap 12 (6-14) Blood Urea Nitrogen 12mg/dL (8-26) Creatinine 0.8mg/dL (0.7-1.3) Estimated GFR (Cockcroft-Gault) 143.7 Glucose Level 67mg/dL (70-99) Calcium Level 7.7mg/dL (8.5-10.1) Phosphorus Level 3.0mg/dL (2.6-4.7) Magnesium Level 2.3mg/dL (1.8-2.4) Creatine Kinase 1484U/L (39-308) Albumin 2.2g/dL (3.4-5.0) Lipase 1082U/L (73-393) Microbiology 10/09/16 Urine Culture - Preliminary, Resulted 10/09/16 Urine Culture Result 1 (NIR) - Preliminary, Resulted Medications Current Medications Fentanyl Citrate 50 mcg 50 mcg PRN Q15MIN PRN IV PAIN GREATER THAN 3/10 Last administered on 10/09/16t 13:56; Start 10/09/16 at 13:45; Stop 10/10/16 at 10:27; Status DC Sodium Chloride (Iv Sodium Chloride 0.9% 1000ml Bag) 1,000 ml @ 1,000 mls/hr Q1H IV Last administered on 10/09/16 13:57; Start 10/09/16 at 13:40; Stop at 14:39; Status DC Ondansetron HCl (Zofran) 4 mg 1X ONCE IV Last administered on 10/09/16 13:55; Start 10/09/16 at 13:45; Stop 10/09/16 at 13:46; Status DC Famotidine 20 mg 20 mg 1X ONCE IVP Last administered on 10/09/16 13:56; Start 10/09/16 at 13:45; Stop 10/09/16 at 13:46; Status DC Sodium Chloride (Iv Sodium Chloride 0.9% 1000ml Bag) 1,000 ml @ 1,000 mls/hr 1X ONCE IV Last administered on 10/09/16 14:50; Start 10/09/16 at 15:00; Stop 10/09/16 at 15:59; Status DC Ondansetron HCl (Zofran) 4 mg PRN Q8HRS PRN IV NAUSEA/VOMITING; Start 10/09/16 at 14:45; Stop 10/10/16 at 14:44; Status UNV Fentanyl Citrate 50 mcg 50 mcg PRN Q2HR PRN IV PAIN; Start 10/09/16 at 14:45; Stop 10/10/16 at 14:44; Status UNV Sodium Chloride (Iv Sodium Chloride 0.9% 1000ml Bag) 1,000 ml @ 125 mls/hr Q8H IV ; Start 10/09/16 at 14:40; Stop 10/10/16 at 14:39; Status UNV Ondansetron HCl (Zofran) 4 mg PRN Q8HRS PRN IV NAUSEA/VOMITING; Start 10/09/16 at 14:45; Stop 10/10/16 at 10:27; Status DC Fentanyl Citrate 50 mcg 50 mcg PRN Q2HR PRN IV PAIN Last administered on 19:57; Start 10/09/16 at 14:45; Stop 10/11/16 at 15:45 Sodium Chloride (Iv Sodium Chloride 0.9% 1000ml Bag) 1,000 ml @ 200 mls/hr Q5H IV Last administered on 10/10/16 03:35; Start 10/09/16 at 14:45; Stop 10/10/16 at 10:00; Status DC Acetaminophen (Tylenol) 650 mg PRN Q4HRS PRN PO FEVER; Start 10/09/16 at 14:45; Stop 10/10/16 at 10:27; Status DC Iohexol (Omnipaque 300 Mg/ml) 75 ml 1X ONCE IV Last administered on 10/09/16 15:26; Start 10/09/16 at 15:15; Stop 10/09/16 at 15:16; Status DC Info 1 each 1 each PRN DAILY PRN MC SEE COMMENTS; Start 10/09/16 at 15:15; Stop 10/11/16 at 15:14 Potassium Acetate/ Sodium Chloride (Iv Sodium Chloride 0.9% 1000ml Bag) 1,020 ml @ 200 mls/hr Q5H6M IV Last administered on 10/11/16 03:56; Start 10/10/16 at 10:30; Stop 10/10/16 at 20:29; Status DC Acetaminophen (Tylenol) 650 mg PRN Q6HRS PRN PO MILD PAIN / TEMP; Start at 10:15 Ondansetron HCl 4 mg 4 mg PRN Q6HRS PRN IV NAUSEA/VOMITING; Start 10/10/16 at 10 :15 Sodium Chloride 1,000 ml @ 150 mls/hr Q6H40M IV Last administered on 10:49; Start 10/10/16 at 10:15 Potassium Chloride 50 ml @ 50 mls/hr Q1H IV ; Start 10/10/16 at 10:15; Stop at 12:14; Status UNV Potassium Chloride (KCl Premix 10meq) 100 ml @ 100 mls/hr Q1H IV Last administered on 10/10/16 23:32; Start 10/10/16 at 11:00; Stop 10/10/16 at 14:59; Status DC Pantoprazole Sodium (Protonix) 40 mg DAILYAC PO Last administered on 10/11/16 07:48; Start 10/10/16 at 10:30 Acetaminophen/ Hydrocodone Bitart (Lortab 5/325) 1 tab PRN Q4HRS PRN PO PAIN Last administered on 10/10/16 21:08; Start 10/10/16 at 12:15 Morphine Sulfate 2 mg PRN Q2HR PRN IV PAIN; Start 10/10/16 at 12:15 Vitals/I & O Vital Sign - Last 24 Hours 10/10/16 10/10/16 10/10/16 10/10/16 15:00 17:17 18:17 19:00 Temp 98.8 99.5 98.8 99.5 Pulse 76 82 Resp 18 18 20 16 B/P 104/52 114/62 Pulse Ox 97 97 97 O2 Delivery Room Air Room Air Room Air 10/10/16 10/10/16 10/10/16 10/11/16 21:08 22:08 23:55 03:40 Temp 97.5 98.1 97.5 98.1 Pulse 97 77 Resp 16 16 B/P 105/50 93/56 Pulse Ox 97 100 97 O2 Delivery Room Air Room Air Room Air Room Air 10/11/16 10/11/16 07:25 10:39 Temp 98.8 99.0 98.8 99.0 Pulse 91 80 Resp 18 20 B/P 136/78 131/78 Pulse Ox 95 97 O2 Delivery Room Air Room Air Intake and Output 10/10/16 10/10/16 10/11/16 15:00 23:00 07:00 Intake Total 500 ml 1050 ml Output Total 1950 ml Balance 500 ml 1050 ml -1950 ml LAM LOPEZ MD Oct 11, 2016 13:52
[2016-10-11 14:55] VITALS: BP 143/91
--- NOTE | 2016-10-11 15:48 | PDOC ---
Subjective: Subjective: Feeling better. Tolerating clears. Objective: Vital Signs: Vital Signs Date Time Temp Pulse Resp B/P Pulse Ox O2 Delivery O2 Flow Rate FiO2 10/11/16 10:39 99.0 80 20 131/78 97 Room Air 99.0 Labs: Laboratory Tests Test 10/11/16 04:00 10/11/16 04:30 Urine Collection Type Unknown Urine Color Merissa Urine Clarity Clear Urine pH 6.0 Urine Specific [place] 1.010 Urine Protein 100mg/dL Urine Glucose (UA) Negativemg/dL Urine Ketones (Stick) >=80mg/dL Urine Blood Large Urine Nitrite Negative Urine Bilirubin Negative Urine Urobilinogen Dipstick 2.0mg/dL Urine Leukocyte Esterase Negative Urine RBC 1-2/HPF Urine WBC 1-4/HPF Urine Bacteria Few/HPF Urine Cellular Casts Occ/HPF Urine Hyaline Casts Few/HPF Urine Granular Casts Occasional/HPF Urine Waxy Casts Occasional/HPF Urine Mucus Slight/LPF Urine Opiates Screen Pos Urine Methadone Screen Neg Urine Barbiturates Neg Urine Phencyclidine Screen Neg Urine Amphetamine/Methamphetamine Neg Urine Benzodiazepines Screen Neg Urine Cocaine Screen Neg Urine Cannabinoids Screen Pos Urine Ethyl Alcohol Neg Sodium Level 143mmol/L Potassium Level 4.5mmol/L Chloride Level 110mmol/L Carbon Dioxide Level 21mmol/L Anion Gap 12 Blood Urea Nitrogen 12mg/dL Creatinine 0.8mg/dL Estimated GFR (Cockcroft-Gault) 143.7 Glucose Level 67mg/dL Calcium Level 7.7mg/dL Phosphorus Level 3.0mg/dL Magnesium Level 2.3mg/dL Creatine Kinase 1484U/L Albumin 2.2g/dL Lipase 1082U/L PE: GEN: NAD LUNGS: CTAB HEART: RRR ABD: S/ND/NT NEURO/PSYCH: A & O 3 A/P: Rhabdomyolysis -CK now 1484 Abd pain, n/v - improved -elevated LFTs, lipase w/ unremarkable CT and US -- Improving. ?viral IVOEN-ARRON AGUIRRE Oct 11, 2016 15:48
--- NOTE | 2016-10-11 16:46 | PDOC ---
Provider Note Provider Note Onc consult dictated- [id number] Anemia, thrombocytopenia Acute pancreatitis Denied alcohol, meds. No organomegaly. No labs for comparison here or at [facility]. Suspect mild cytopenias related to viral illness. Nutritional etiologies ordered , will call pt with results if return after his probable DC tomorrow. Ok to DC from heme standpoint. ISIDORO EDMOND DO Oct 11, 2016 16:46
[2016-10-11 17:44] LABS: % SAT IRON 11 % (15-34); IRON,SERUM 25 ug/dL (65-175)
[2016-10-11 19:00] VITALS: BP 138/81
[2016-10-11] MEDS: ACETAMINOPHEN 325 MG TABLET. PO PRN (20:44)
[2016-10-11 23:00] VITALS: BP 130/79
--- NOTE | 2016-10-11 23:17 | RAD ---
PROCEDURE Single view chest radiograph HISTORY Fever TECHNIQUE Portable upright AP view of the chest is obtained. COMPARISON None FINDINGS No focal consolidation, pleural effusion or pneumothorax is seen. Cardiomediastinal silhouette is within normal limits of size. Visualized osseous structures and overlying soft tissues demonstrate no acute finding. IMPRESSION No focal consolidation or acute radiographic finding. Electronically signed by: Bre Hamm (Oct 11, 2016 23:15:20)
[2016-10-12 03:00] VITALS: BP 141/85
[2016-10-12] MEDS: IV NORMAL SALINE 1000ML BAG 1,000 ML IV SCH ×3 (04:30→22:15)
[2016-10-12 06:10] LABS: ALBUMIN 2.3 g/dL (3.4-5.0); CALCIUM 8.4 mg/dL (8.5-10.1); CREATININE 0.7 mg/dL (0.7-1.3); GFR 167.6; PHOSPHORUS 2.7 mg/dL (2.6-4.7)
[2016-10-12 07:37] VITALS: BP 143/86
[2016-10-12] MEDS: ACETAMINOPHEN 325 MG TABLET. PO PRN ×2 (07:53→21:02)
[2016-10-12] MEDS: PANTOPRAZOLE 40 MG TABLET. PO SCH (07:53)
[2016-10-12] MEDS ORDERED: IRON SUCROSE COMPLEX 500 MG in IV NORMAL SALINE 250ML 250 ML IV ONE (08:00)
[2016-10-12 08:06] LABS: BASO % 0 % (0-3); EOS % 1 % (0-3); HEMATOCRIT 37.6 % (39.0-53.0); HEMOGLOBIN 12.1 g/dL (13.0-17.5); LYMPH # 1.1 x10^3/uL (1.0-4.8); LYMPH % 21 % (24-48); MEAN CORPUSCULAR HEMOGLOBIN 29 pg (25-35); MEAN CORPUSCULAR HGB CONC 32 g/dL (31-37); MEAN CORPUSCULAR VOLUME 92 fL (79-100); MONO % 19 % (0-9); NEUT % 59 % (31-73); PLATELET COUNT 168 x10^3/uL (140-400); RED CELL DISTRIBUTION WIDTH 12.8 % (11.5-14.5)
--- NOTE | 2016-10-12 08:32 | CONS ---
DATE OF CONSULTATION: 10/11/2016 HEMATOLOGY CONSULT NOTE REFERRING PROVIDER: Dr. Barakat. REASON FOR CONSULTATION: Abnormal CBC. HISTORY OF PRESENT ILLNESS: The patient is a 26-year-old male who was admitted to the hospital a few days ago with fever, abdominal pain, nausea, vomiting and what appears to now be classified as a viral pancreatitis. Initially, his LFTs were elevated around 300. His lipase was 1600. Creatinine kinase was 1500. Over time with supportive care, the lipase has decreased to 1100. His LFTs are slowly decreasing as well. CT of the abdomen and pelvis did not reveal any significant inflammation of the pancreas or other findings; however, abdominal ultrasound was also unremarkable. Hepatitis panel is negative. He denies any alcohol use or medications. Initially, his hemoglobin was 12.4, platelets 87. He does not have any other labs for comparison either here or from his recent ER visit at [facility]. PAST MEDICAL HISTORY: Asthma. PAST SURGICAL HISTORY: Negative. FAMILY HISTORY: Mom, dad; hypertension and diabetes. His siblings do not have any health problems. SOCIAL HISTORY: He denies any tobacco, alcohol or drug use, though his UDS was positive for marijuana. ALLERGIES: No known drug allergies. CURRENT MEDICATIONS: Morphine, Lortab, Protonix, Zofran, Tylenol. REVIEW OF SYSTEMS: A 10-point review of systems completed and now unremarkable. He is feeling well. PHYSICAL EXAMINATION: VITAL SIGNS: Temperature 99.0, pulse 83, respiratory rate 20, blood pressure 143/91, 95% O2 on room air. GENERAL: He is alert and oriented. He does not appear to be in any distress at this time. HEENT: Extraocular muscle strength is intact. Mucous membranes are moist. CARDIOVASCULAR: Heart is regular in rhythm and rate. LUNGS: Clear to auscultation bilaterally. ABDOMEN: Soft, nontender. No obvious organomegaly. EXTREMITIES: No edema. NEUROLOGIC: No focal or cranial deficits. IMAGING AND LABORATORY DATA: Pertinent CBC, CMP, lipase, abdominal ultrasound and CT reviewed as above. ASSESSMENT AND PLAN: The patient is a 26-year-old male with the following medical problems: 1. Mild normocytic anemia and thrombocytopenia. Unfortunately, I have no previous labs for comparison; however, given the clinical picture of a viral pancreatitis, I suspect these mild changes were likely due to the viral illness as well. However, I will draw B12, folic acid, iron, TSH. His imaging did not reveal any organomegaly. He is not on any of a new medication. He denies any alcohol use. Unfortunately, he does not carry medical insurance, so I will not be able to see him in followup for repeat labs afterwards. However, hopefully these labs will improve with resolution of this infection. 2. Probable viral pancreatitis. Clinically improving. Liver enzymes and lipase continue to improve. Per chart review, he may be discharged over this weekend. From a hematologic standpoint, he can be discharged at any time. Thank you for allowing me to participate in his care. ISIDORO EDMOND DO DR: BILL/ino JOB#: [id number] / [id number]
[2016-10-12 10:27] VITALS: BP 143/78
--- NOTE | 2016-10-12 13:57 | PDOC ---
PROGRESS NOTES Chief Complaint Chief Complaint pancreatitis 2/2 alcohol likely transaminitis 2/2 alcohol likely Rhabdomyolisis hyponatemia, hypovolemic HYPOKALEMIA low albumin 2/2 liver dz thrombocytopenia fever, not clear etiology plan: 1. fu with renal, gi 2. hepatitis penal neg 3. CONT ivf clear liquid DVT , GI PPX abd CT, US ok lipase daily onco consult for abnormal blood smear, iron given dc tmr when afebrile History of Present Illness History of Present Illness nausea, abd pain, gone lipase ,CK better hepatitis panel neg fever last night, feels good, ua, cx neg Vitals Vitals Vital Signs Date Time Temp Pulse Resp B/P Pulse Ox O2 Delivery O2 Flow Rate FiO2 10/12/16 10:27 97.9 77 20 143/78 97 Room Air 97.9 Physical Exam General: Alert, Oriented X3, Cooperative, mild distress Abdomen: Normal bowel sounds, Soft (tender, no guarding, no peritoneal, ) Extremities: No clubbing, No cyanosis, No edema, Normal pulses Skin: No breakdown Labs LABS Laboratory Tests Test 10/11/16 17:17 10/12/16 05:00 10/12/16 07:49 Iron Level 25ug/dL (65-175) Total Iron Binding Capacity 237ug/dL (250-450) Iron Saturation 11% (15-34) Ferritin 30693ps/mL (26-388) Serum Folate 13.30ng/ml (3.2-20.0) Thyroid Stimulating Hormone (TSH) 1.481uIU/mL (0.358-3.74) Sodium Level 142mmol/L (136-145) Potassium Level 4.0mmol/L (3.5-5.1) Chloride Level 108mmol/L (98-107) Carbon Dioxide Level 21mmol/L (21-32) Anion Gap 13 (6-14) Blood Urea Nitrogen 7mg/dL (8-26) Creatinine 0.7mg/dL (0.7-1.3) Estimated GFR (Cockcroft-Gault) 167.6 Glucose Level 73mg/dL (70-99) Calcium Level 8.4mg/dL (8.5-10.1) Phosphorus Level 2.7mg/dL (2.6-4.7) Creatine Kinase 972U/L (39-308) Albumin 2.3g/dL (3.4-5.0) Lipase 659U/L (73-393) White Blood Count 5.0x10^3/uL (4.0-11.0) Red Blood Count 4.10x10^6/uL (4.30-5.70) Hemoglobin 12.1g/dL (13.0-17.5) Hematocrit 37.6% (39.0-53.0) Mean Corpuscular Volume 92fL (79-100) Mean Corpuscular Hemoglobin 29pg (25-35) Mean Corpuscular Hemoglobin Concent 32g/dL (31-37) Red Cell Distribution Width 12.8% (11.5-14.5) Platelet Count 168x10^3/uL (140-400) Neutrophils (%) (Auto) 59% (31-73) Lymphocytes (%) (Auto) 21% (24-48) Monocytes (%) (Auto) 19% (0-9) Eosinophils (%) (Auto) 1% (0-3) Basophils (%) (Auto) 0% (0-3) Neutrophils # (Auto) 3.0x10^3uL (1.8-7.7) Lymphocytes # (Auto) 1.1x10^3/uL (1.0-4.8) Monocytes # (Auto) 0.9x10^3/uL (0.0-1.1) Eosinophils # (Auto) 0.0x10^3/uL (0.0-0.7) Basophils # (Auto) 0.0x10^3/uL (0.0-0.2) Review of Systems Review of Systems no chills, sob or chest pain Assessment and Plan Assessmemt and Plan Problems Medical Problems: (1) Acute pancreatitis Status: Acute (2) Dehydration Status: Acute (3) Rhabdomyolysis Status: Acute Problems: Comment Review of Relevant I have reviewed the following items albino (where applicable) has been applied. Labs Laboratory Tests Test 10/11/16 04:00 10/11/16 04:30 10/11/16 17:17 10/12/16 05:00 Urine Collection Type Unknown Urine Color Merissa Urine Clarity Clear Urine pH 6.0 Urine Specific Arthur 1.010 Urine Protein 100mg/dL (NEG-TRACE) Urine Glucose (UA) Negativemg/dL (NEG) Urine Ketones (Stick) >=80mg/dL (NEG) Urine Blood Large (NEG) Urine Nitrite Negative (NEG) Urine Bilirubin Negative (NEG) Urine Urobilinogen Dipstick 2.0mg/dL (0.2 mg/dL) Urine Leukocyte Esterase Negative (NEG) Urine RBC 1-2/HPF (0-2) Urine WBC 1-4/HPF (0-4) Urine Bacteria Few/HPF (0-FEW) Urine Cellular Casts Occ/HPF Urine Hyaline Casts Few/HPF Urine Granular Casts Occasional/HPF Urine Waxy Casts Occasional/HPF Urine Mucus Slight/LPF Urine Opiates Screen Pos (NEG) Urine Methadone Screen Neg (NEG) Urine Barbiturates Neg (NEG) Urine Phencyclidine Screen Neg (NEG) Urine Amphetamine/Methamphetamine Neg (NEG) Urine Benzodiazepines Screen Neg (NEG) Urine Cocaine Screen Neg (NEG) Urine Cannabinoids Screen Pos (NEG) Urine Ethyl Alcohol Neg (NEG) Sodium Level 143mmol/L (136-145) 142mmol/L (136-145) Potassium Level 4.5mmol/L (3.5-5.1) 4.0mmol/L (3.5-5.1) Chloride Level 110mmol/L (98-107) 108mmol/L (98-107) Carbon Dioxide Level 21mmol/L (21-32) 21mmol/L (21-32) Anion Gap 12 (6-14) 13 (6-14) Blood Urea Nitrogen 12mg/dL (8-26) 7mg/dL (8-26) Creatinine 0.8mg/dL (0.7-1.3) 0.7mg/dL (0.7-1.3) Estimated GFR (Cockcroft-Gault) 143.7 167.6 Glucose Level 67mg/dL (70-99) 73mg/dL (70-99) Calcium Level 7.7mg/dL (8.5-10.1) 8.4mg/dL (8.5-10.1) Phosphorus Level 3.0mg/dL (2.6-4.7) 2.7mg/dL (2.6-4.7) Magnesium Level 2.3mg/dL (1.8-2.4) Creatine Kinase 1484U/L (39-308) 972U/L (39-308) Albumin 2.2g/dL (3.4-5.0) 2.3g/dL (3.4-5.0) Lipase 1082U/L (73-393) 659U/L (73-393) Iron Level 25ug/dL (65-175) Total Iron Binding Capacity 237ug/dL (250-450) Iron Saturation 11% (15-34) Ferritin 76526ew/mL (26-388) Serum Folate 13.30ng/ml (3.2-20.0) Thyroid Stimulating Hormone (TSH) 1.481uIU/mL (0.358-3.74) Test 10/12/16 07:49 White Blood Count 5.0x10^3/uL (4.0-11.0) Red Blood Count 4.10x10^6/uL (4.30-5.70) Hemoglobin 12.1g/dL (13.0-17.5) Hematocrit 37.6% (39.0-53.0) Mean Corpuscular Volume 92fL (79-100) Mean Corpuscular Hemoglobin 29pg (25-35) Mean Corpuscular Hemoglobin Concent 32g/dL (31-37) Red Cell Distribution Width 12.8% (11.5-14.5) Platelet Count 168x10^3/uL (140-400) Neutrophils (%) (Auto) 59% (31-73) Lymphocytes (%) (Auto) 21% (24-48) Monocytes (%) (Auto) 19% (0-9) Eosinophils (%) (Auto) 1% (0-3) Basophils (%) (Auto) 0% (0-3) Neutrophils # (Auto) 3.0x10^3uL (1.8-7.7) Lymphocytes # (Auto) 1.1x10^3/uL (1.0-4.8) Monocytes # (Auto) 0.9x10^3/uL (0.0-1.1) Eosinophils # (Auto) 0.0x10^3/uL (0.0-0.7) Basophils # (Auto) 0.0x10^3/uL (0.0-0.2) Laboratory Tests Test 10/11/16 17:17 10/12/16 05:00 10/12/16 07:49 Iron Level 25ug/dL (65-175) Total Iron Binding Capacity 237ug/dL (250-450) Iron Saturation 11% (15-34) Ferritin 68735rz/mL (26-388) Serum Folate 13.30ng/ml (3.2-20.0) Thyroid Stimulating Hormone (TSH) 1.481uIU/mL (0.358-3.74) Sodium Level 142mmol/L (136-145) Potassium Level 4.0mmol/L (3.5-5.1) Chloride Level 108mmol/L (98-107) Carbon Dioxide Level 21mmol/L (21-32) Anion Gap 13 (6-14) Blood Urea Nitrogen 7mg/dL (8-26) Creatinine 0.7mg/dL (0.7-1.3) Estimated GFR (Cockcroft-Gault) 167.6 Glucose Level 73mg/dL (70-99) Calcium Level 8.4mg/dL (8.5-10.1) Phosphorus Level 2.7mg/dL (2.6-4.7) Creatine Kinase 972U/L (39-308) Albumin 2.3g/dL (3.4-5.0) Lipase 659U/L (73-393) White Blood Count 5.0x10^3/uL (4.0-11.0) Red Blood Count 4.10x10^6/uL (4.30-5.70) Hemoglobin 12.1g/dL (13.0-17.5) Hematocrit 37.6% (39.0-53.0) Mean Corpuscular Volume 92fL (79-100) Mean Corpuscular Hemoglobin 29pg (25-35) Mean Corpuscular Hemoglobin Concent 32g/dL (31-37) Red Cell Distribution Width 12.8% (11.5-14.5) Platelet Count 168x10^3/uL (140-400) Neutrophils (%) (Auto) 59% (31-73) Lymphocytes (%) (Auto) 21% (24-48) Monocytes (%) (Auto) 19% (0-9) Eosinophils (%) (Auto) 1% (0-3) Basophils (%) (Auto) 0% (0-3) Neutrophils # (Auto) 3.0x10^3uL (1.8-7.7) Lymphocytes # (Auto) 1.1x10^3/uL (1.0-4.8) Monocytes # (Auto) 0.9x10^3/uL (0.0-1.1) Eosinophils # (Auto) 0.0x10^3/uL (0.0-0.7) Basophils # (Auto) 0.0x10^3/uL (0.0-0.2) Microbiology 10/09/16 Urine Culture - Final, Complete 10/09/16 Urine Culture Result 1 (NIR) - Final, Complete Medications Current Medications Fentanyl Citrate 50 mcg 50 mcg PRN Q15MIN PRN IV PAIN GREATER THAN 3/10 Last administered on 10/09/16 13:56; Start 10/09/16 at 13:45; Stop 10/10/16 at 10:27; Status DC Sodium Chloride (Iv Sodium Chloride 0.9% 1000ml Bag) 1,000 ml @ 1,000 mls/hr Q1H IV Last administered on 10/09/16 13:57; Start 10/09/16 at 13:40; Stop at 14:39; Status DC Ondansetron HCl (Zofran) 4 mg 1X ONCE IV Last administered on 10/09/16 13:55; Start 10/09/16 at 13:45; Stop 10/09/16 at 13:46; Status DC Famotidine 20 mg 20 mg 1X ONCE IVP Last administered on 10/09/16 13:56; Start 10/09/16 at 13:45; Stop 10/09/16 at 13:46; Status DC Sodium Chloride (Iv Sodium Chloride 0.9% 1000ml Bag) 1,000 ml @ 1,000 mls/hr 1X ONCE IV Last administered on 10/09/16 14:50; Start 10/09/16 at 15:00; Stop 10/09/16 at 15:59; Status DC Ondansetron HCl (Zofran) 4 mg PRN Q8HRS PRN IV NAUSEA/VOMITING; Start 10/09/16 at 14:45; Stop 10/10/16 at 14:44; Status UNV Fentanyl Citrate 50 mcg 50 mcg PRN Q2HR PRN IV PAIN; Start 10/09/16 at 14:45; Stop 10/10/16 at 14:44; Status UNV Sodium Chloride (Iv Sodium Chloride 0.9% 1000ml Bag) 1,000 ml @ 125 mls/hr Q8H IV ; Start 10/09/16 at 14:40; Stop 10/10/16 at 14:39; Status UNV Ondansetron HCl (Zofran) 4 mg PRN Q8HRS PRN IV NAUSEA/VOMITING; Start 10/09/16 at 14:45; Stop 10/10/16 at 10:27; Status DC Fentanyl Citrate 50 mcg 50 mcg PRN Q2HR PRN IV PAIN Last administered on 19:57; Start 10/09/16 at 14:45; Stop 10/11/16 at 15:45; Status DC Sodium Chloride (Iv Sodium Chloride 0.9% 1000ml Bag) 1,000 ml @ 200 mls/hr Q5H IV Last administered on 10/10/16 03:35; Start 10/09/16 at 14:45; Stop 10/10/16 at 10:00; Status DC Acetaminophen (Tylenol) 650 mg PRN Q4HRS PRN PO FEVER; Start 10/09/16 at 14:45; Stop 10/10/16 at 10:27; Status DC Iohexol (Omnipaque 300 Mg/ml) 75 ml 1X ONCE IV Last administered on 10/09/16 15:26; Start 10/09/16 at 15:15; Stop 10/09/16 at 15:16; Status DC Info 1 each 1 each PRN DAILY PRN MC SEE COMMENTS; Start 10/09/16 at 15:15; Stop 10/11/16 at 15:14; Status DC Potassium Acetate/ Sodium Chloride (Iv Sodium Chloride 0.9% 1000ml Bag) 1,020 ml @ 200 mls/hr Q5H6M IV Last administered on 10/11/16 03:56; Start 10/10/16 at 10:30; Stop 10/10/16 at 20:29; Status DC Acetaminophen (Tylenol) 650 mg PRN Q6HRS PRN PO MILD PAIN / TEMP Last administered on 10/12/16 07:53; Start 10/10/16 at 10:15 Ondansetron HCl 4 mg 4 mg PRN Q6HRS PRN IV NAUSEA/VOMITING; Start 10/10/16 at 10 :15 Sodium Chloride 1,000 ml @ 150 mls/hr Q6H40M IV Last administered on 04:30; Start 10/10/16 at 10:15 Potassium Chloride 50 ml @ 50 mls/hr Q1H IV ; Start 10/10/16 at 10:15; Stop at 12:14; Status UNV Potassium Chloride (KCl Premix 10meq) 100 ml @ 100 mls/hr Q1H IV Last administered on 10/10/16 23:32; Start 10/10/16 at 11:00; Stop 10/10/16 at 14:59; Status DC Pantoprazole Sodium (Protonix) 40 mg DAILYAC PO Last administered on 10/12/16 07:53; Start 10/10/16 at 10:30 Acetaminophen/ Hydrocodone Bitart (Lortab 5/325) 1 tab PRN Q4HRS PRN PO PAIN Last administered on 10/10/16 21:08; Start 10/10/16 at 12:15 Morphine Sulfate 2 mg 2 mg PRN Q2HR PRN IV PAIN; Start 10/10/16 at 12:15 Iron Sucrose/ Sodium Chloride (Venofer/Iv Sodium Chloride 0.9% 250ml) 275 ml @ 78.571 mls/ hr 1X ONCE IV Last administered on 10/12/16 07:53; Start at 08:00; Stop 10/12/16 at 11:29; Status DC Vitals/I & O Vital Sign - Last 24 Hours 10/11/16 10/11/16 10/11/16 10/11/16 14:55 19:00 20:00 23:00 Temp 99.0 102.5 98.8 99.0 102.5 98.8 Pulse 83 89 86 Resp 18 18 B/P 143/91 138/81 130/79 Pulse Ox 95 98 100 O2 Delivery Room Air Room Air Room Air Room Air 10/12/16 10/12/16 10/12/16 03:00 07:37 10:27 Temp 100.9 100.4 97.9 100.9 100.4 97.9 Pulse 94 85 77 Resp 22 18 20 B/P 141/85 143/86 143/78 Pulse Ox 98 96 97 O2 Delivery Room Air Room Air Room Air Intake and Output 10/11/16 10/11/16 10/12/16 15:00 23:00 07:00 Intake Total 1250 ml Output Total 550 ml 5 ml Balance 700 ml -5 ml LAM LOPEZ MD Oct 12, 2016 13:57
[2016-10-12 14:10] VITALS: BP 135/75
[2016-10-12 19:00] VITALS: BP 138/85
[2016-10-12 20:15] LABS: % EOS 1 % (0-5); PLT ESTIMATE ADEQUATE (ADEQUATE)
--- NOTE | 2016-10-12 22:56 | PDOC ---
Provider Note Provider Note RENAL F/U : OCTAVIO S : Doing better. No myalgia. No active CP. O : VSS Afebrile. Alert. Neck : Supple Lungs : Non labored. Decreased bases. CVS : RRR Abd : Benign appearance. Ext : No CCE No major edema. Neuro : Grossly intact. Labs reviewed. ARF/ATN RHABDOMYOLYSIS WEAKNESS DEHYDRATION. Doing better Cr improved. Follow I/Os Supportive care. Andrae Cunningham M.D. ANDRAE CUNNINGHAM MD Oct 12, 2016 22:55
[2016-10-12 23:00] VITALS: BP 142/80
[2016-10-13 03:34] VITALS: BP 127/76
[2016-10-13] MEDS: IV NORMAL SALINE 1000ML BAG 1,000 ML IV SCH ×2 (04:45→10:51)
[2016-10-13 05:20] LABS: ALBUMIN 2.6 g/dL (3.4-5.0); CALCIUM 8.5 mg/dL (8.5-10.1); CREATININE 0.9 mg/dL (0.7-1.3); GFR 125.4; PHOSPHORUS 3.3 mg/dL (2.6-4.7); POTASSIUM 4.3 mmol/L (3.5-5.1)
[2016-10-13 07:00] VITALS: BP 125/70
[2016-10-13] MEDS: PANTOPRAZOLE 40 MG TABLET. PO SCH (07:45)
[2016-10-13 11:30] VITALS: BP 117/75
--- NOTE | 2016-10-13 13:03 | PDOC ---
PROGRESS NOTES Chief Complaint Chief Complaint pancreatitis 2/2 alcohol likely transaminitis 2/2 alcohol likely Rhabdomyolisis hyponatemia, hypovolemic HYPOKALEMIA low albumin 2/2 liver dz thrombocytopenia fever, not clear etiology plan: 1. fu with renal, gi 2. hepatitis penal neg 3. CONT ivf clear liquid DVT , GI PPX abd CT, US ok lipase daily onco consult for abnormal blood smear, iron given fever again today, asymptomatic. will get ID consult, hold dc for now pt refuse iv 2/2 pain from iv dc tmr when afebrile History of Present Illness History of Present Illness nausea, abd pain, gone lipase ,CK better hepatitis panel neg fever last night, feels good, ua, cx neg Vitals Vitals Vital Signs Date Time Temp Pulse Resp B/P Pulse Ox O2 Delivery O2 Flow Rate FiO2 10/13/16 11:30 101.8 84 16 117/75 99 Room Air 101.8 Physical Exam General: Alert, Oriented X3, Cooperative, mild distress Abdomen: Normal bowel sounds, Soft (tender, no guarding, no peritoneal, ) Extremities: No clubbing, No cyanosis, No edema, Normal pulses Skin: No breakdown Labs LABS Laboratory Tests Test 10/13/16 04:38 Sodium Level 143mmol/L (136-145) Potassium Level 4.3mmol/L (3.5-5.1) Chloride Level 108mmol/L (98-107) Carbon Dioxide Level 23mmol/L (21-32) Anion Gap 12 (6-14) Blood Urea Nitrogen 5mg/dL (8-26) Creatinine 0.9mg/dL (0.7-1.3) Estimated GFR (Cockcroft-Gault) 125.4 Glucose Level 68mg/dL (70-99) Calcium Level 8.5mg/dL (8.5-10.1) Phosphorus Level 3.3mg/dL (2.6-4.7) Creatine Kinase 609U/L (39-308) Albumin 2.6g/dL (3.4-5.0) Lipase 430U/L (73-393) Review of Systems Review of Systems no fever, chills, sob or chest pain Assessment and Plan Assessmemt and Plan Problems Medical Problems: (1) Acute pancreatitis Status: Acute (2) Dehydration Status: Acute (3) Rhabdomyolysis Status: Acute Problems: Comment Review of Relevant I have reviewed the following items albino (where applicable) has been applied. Labs Laboratory Tests Test 10/11/16 17:17 10/12/16 05:00 10/12/16 07:49 10/13/16 04:38 Iron Level 25ug/dL (65-175) Total Iron Binding Capacity 237ug/dL (250-450) Iron Saturation 11% (15-34) Ferritin 77130oz/mL (26-388) Serum Folate 13.30ng/ml (3.2-20.0) Thyroid Stimulating Hormone (TSH) 1.481uIU/mL (0.358-3.74) Sodium Level 142mmol/L (136-145) 143mmol/L (136-145) Potassium Level 4.0mmol/L (3.5-5.1) 4.3mmol/L (3.5-5.1) Chloride Level 108mmol/L (98-107) 108mmol/L (98-107) Carbon Dioxide Level 21mmol/L (21-32) 23mmol/L (21-32) Anion Gap 13 (6-14) 12 (6-14) Blood Urea Nitrogen 7mg/dL (8-26) 5mg/dL (8-26) Creatinine 0.7mg/dL (0.7-1.3) 0.9mg/dL (0.7-1.3) Estimated GFR (Cockcroft-Gault) 167.6 125.4 Glucose Level 73mg/dL (70-99) 68mg/dL (70-99) Calcium Level 8.4mg/dL (8.5-10.1) 8.5mg/dL (8.5-10.1) Phosphorus Level 2.7mg/dL (2.6-4.7) 3.3mg/dL (2.6-4.7) Creatine Kinase 972U/L (39-308) 609U/L (39-308) Albumin 2.3g/dL (3.4-5.0) 2.6g/dL (3.4-5.0) Lipase 659U/L (73-393) 430U/L (73-393) White Blood Count 5.0x10^3/uL (4.0-11.0) Red Blood Count 4.10x10^6/uL (4.30-5.70) Hemoglobin 12.1g/dL (13.0-17.5) Hematocrit 37.6% (39.0-53.0) Mean Corpuscular Volume 92fL (79-100) Mean Corpuscular Hemoglobin 29pg (25-35) Mean Corpuscular Hemoglobin Concent 32g/dL (31-37) Red Cell Distribution Width 12.8% (11.5-14.5) Platelet Count 168x10^3/uL (140-400) Neutrophils (%) (Auto) 59% (31-73) Lymphocytes (%) (Auto) 21% (24-48) Monocytes (%) (Auto) 19% (0-9) Eosinophils (%) (Auto) 1% (0-3) Basophils (%) (Auto) 0% (0-3) Neutrophils # (Auto) 3.0x10^3uL (1.8-7.7) Lymphocytes # (Auto) 1.1x10^3/uL (1.0-4.8) Monocytes # (Auto) 0.9x10^3/uL (0.0-1.1) Eosinophils # (Auto) 0.0x10^3/uL (0.0-0.7) Basophils # (Auto) 0.0x10^3/uL (0.0-0.2) Segmented Neutrophils % 76% (35-66) Lymphocytes % 14% (24-48) Monocytes % 9% (0-10) Eosinophils % 1% (0-5) Platelet Estimate Adequate (ADEQUATE) Giant Platelets Occ Laboratory Tests Test 10/13/16 04:38 Sodium Level 143mmol/L (136-145) Potassium Level 4.3mmol/L (3.5-5.1) Chloride Level 108mmol/L (98-107) Carbon Dioxide Level 23mmol/L (21-32) Anion Gap 12 (6-14) Blood Urea Nitrogen 5mg/dL (8-26) Creatinine 0.9mg/dL (0.7-1.3) Estimated GFR (Cockcroft-Gault) 125.4 Glucose Level 68mg/dL (70-99) Calcium Level 8.5mg/dL (8.5-10.1) Phosphorus Level 3.3mg/dL (2.6-4.7) Creatine Kinase 609U/L (39-308) Albumin 2.6g/dL (3.4-5.0) Lipase 430U/L (73-393) Microbiology 10/11/16 Blood Culture - Preliminary, Resulted NO GROWTH AFTER 1 DAY 10/12/16 Urine Culture - Preliminary, Resulted 10/12/16 Urine Culture Result 1 (NIR) - Preliminary, Resulted Medications Current Medications Fentanyl Citrate 50 mcg 50 mcg PRN Q15MIN PRN IV PAIN GREATER THAN 10/11 Last administered on 10/09/16 13:56; Start 10/09/16 at 13:45; Stop 10/10/16 at 10:27; Status DC Sodium Chloride (Iv Sodium Chloride 0.9% 1000ml Bag) 1,000 ml @ 1,000 mls/hr Q1H IV Last administered on 10/09/16 13:57; Start 10/09/16 at 13:40; Stop at 14:39; Status DC Ondansetron HCl (Zofran) 4 mg 1X ONCE IV Last administered on 10/09/16 13:55; Start 10/09/16 at 13:45; Stop 10/09/16 at 13:46; Status DC Famotidine 20 mg 20 mg 1X ONCE IVP Last administered on 10/09/16 13:56; Start 10/09/16 at 13:45; Stop 10/09/16 at 13:46; Status DC Sodium Chloride (Iv Sodium Chloride 0.9% 1000ml Bag) 1,000 ml @ 1,000 mls/hr 1X ONCE IV Last administered on 10/09/16 14:50; Start 10/09/16 at 15:00; Stop 10/09/16 at 15:59; Status DC Ondansetron HCl (Zofran) 4 mg PRN Q8HRS PRN IV NAUSEA/VOMITING; Start 10/09/16 at 14:45; Stop 10/10/16 at 14:44; Status UNV Fentanyl Citrate 50 mcg 50 mcg PRN Q2HR PRN IV PAIN; Start 10/09/16 at 14:45; Stop 10/10/16 at 14:44; Status UNV Sodium Chloride (Iv Sodium Chloride 0.9% 1000ml Bag) 1,000 ml @ 125 mls/hr Q8H IV ; Start 10/09/16 at 14:40; Stop 10/10/16 at 14:39; Status UNV Ondansetron HCl (Zofran) 4 mg PRN Q8HRS PRN IV NAUSEA/VOMITING; Start 10/09/16 at 14:45; Stop 10/10/16 at 10:27; Status DC Fentanyl Citrate 50 mcg 50 mcg PRN Q2HR PRN IV PAIN Last administered on 19:57; Start 10/09/16 at 14:45; Stop 10/11/16 at 15:45; Status DC Sodium Chloride (Iv Sodium Chloride 0.9% 1000ml Bag) 1,000 ml @ 200 mls/hr Q5H IV Last administered on 10/10/16 03:35; Start 10/09/16 at 14:45; Stop 10/10/16 at 10:00; Status DC Acetaminophen (Tylenol) 650 mg PRN Q4HRS PRN PO FEVER; Start 10/09/16 at 14:45; Stop 10/10/16 at 10:27; Status DC Iohexol (Omnipaque 300 Mg/ml) 75 ml 1X ONCE IV Last administered on 10/09/16 15:26; Start 10/09/16 at 15:15; Stop 10/09/16 at 15:16; Status DC Info 1 each 1 each PRN DAILY PRN MC SEE COMMENTS; Start 10/09/16 at 15:15; Stop 10/11/16 at 15:14; Status DC Potassium Acetate/ Sodium Chloride (Iv Sodium Chloride 0.9% 1000ml Bag) 1,020 ml @ 200 mls/hr Q5H6M IV Last administered on 10/11/16 03:56; Start 10/10/16 at 10:30; Stop 10/10/16 at 20:29; Status DC Acetaminophen (Tylenol) 650 mg PRN Q6HRS PRN PO MILD PAIN / TEMP Last administered on 10/12/16 21:02; Start 10/10/16 at 10:15 Ondansetron HCl 4 mg 4 mg PRN Q6HRS PRN IV NAUSEA/VOMITING Last administered on 10/12/16 15:24; Start 10/10/16 at 10:15 Sodium Chloride 1,000 ml @ 150 mls/hr Q6H40M IV Last administered on 15:23; Start 10/10/16 at 10:15 Potassium Chloride 50 ml @ 50 mls/hr Q1H IV ; Start 10/10/16 at 10:15; Stop at 12:14; Status UNV Potassium Chloride (KCl Premix 10meq) 100 ml @ 100 mls/hr Q1H IV Last administered on 10/10/16 23:32; Start 10/10/16 at 11:00; Stop 10/10/16 at 14:59; Status DC Pantoprazole Sodium (Protonix) 40 mg DAILYAC PO Last administered on 10/13/16 07:45; Start 10/10/16 at 10:30 Acetaminophen/ Hydrocodone Bitart (Lortab 5/325) 1 tab PRN Q4HRS PRN PO MODERATE - SEVERE PAIN Last administered on 10/10/16 21:08; Start 10/10/16 at 12: 15 Morphine Sulfate 2 mg 2 mg PRN Q2HR PRN IV PAIN; Start 10/10/16 at 12:15 Iron Sucrose/ Sodium Chloride (Venofer/Iv Sodium Chloride 0.9% 250ml) 275 ml @ 78.571 mls/ hr 1X ONCE IV Last administered on 10/12/16 07:53; Start at 08:00; Stop 10/12/16 at 11:29; Status DC Active Scripts Active No Active Prescriptions or Reported Medications Vitals/I & O Vital Sign - Last 24 Hours 10/12/16 10/12/16 10/12/16 10/12/16 14:10 19:00 20:00 23:00 Temp 99.1 100.9 98.4 99.1 100.9 98.4 Pulse 100 97 77 Resp 20 20 20 B/P 135/75 138/85 142/80 Pulse Ox 100 99 96 O2 Delivery Room Air Room Air Room Air Room Air 10/13/16 10/13/16 10/13/16 10/13/16 03:34 07:00 07:30 11:30 Temp 98.1 99.3 101.8 98.1 99.3 101.8 Pulse 82 88 84 Resp 20 16 16 B/P 127/76 125/70 117/75 Pulse Ox 100 99 99 O2 Delivery Room Air Room Air Room Air Room Air Intake and Output 10/12/16 10/12/16 10/13/16 15:00 23:00 07:00 Intake Total 200 ml 800 ml Output Total 0 ml Balance 200 ml 800 ml LAM LOPEZ MD Oct 13, 2016 13:03
[2016-10-13 13:28] LABS: OBC FLU VALID
--- NOTE | 2016-10-13 14:18 | PDOC ---
Infectious Disease Note ROS ROS GEN: Denies fevers, chills, sweats HEENT: Denies blurred vision, sore throat CV: Denies chest pain RESP: Denies shortness of air, cough GI: Denies n/v/d NEURO: Denies confusion, dizziness MSK: Denies weakness, joint pain/swelling Vital Sign Vital Signs Vital Signs Date Time Temp Pulse Resp B/P Pulse Ox O2 Delivery O2 Flow Rate FiO2 10/13/16 11:30 101.8 84 16 117/75 99 Room Air 101.8 Physical Exam PHYSICAL EXAM GENERAL: NAD, Alert HEENT: PERRL, OC/OP NECK: Supple, no JVD, no LN LUNGS: Clear HEART: S1S2, no gallop, no murmur ABD: Soft, NT, no organomegaly, no rebound EXT: No edema, no cyanosis [employer]: Alert, oriented x 3, no focal neurologic deficit SKIN: No rash IV: ok Labs Lab Laboratory Tests Test 10/13/16 04:38 10/13/16 12:30 Sodium Level 143mmol/L (136-145) Potassium Level 4.3mmol/L (3.5-5.1) Chloride Level 108mmol/L (98-107) Carbon Dioxide Level 23mmol/L (21-32) Anion Gap 12 (6-14) Blood Urea Nitrogen 5mg/dL (8-26) Creatinine 0.9mg/dL (0.7-1.3) Estimated GFR (Cockcroft-Gault) 125.4 Glucose Level 68mg/dL (70-99) Calcium Level 8.5mg/dL (8.5-10.1) Phosphorus Level 3.3mg/dL (2.6-4.7) Creatine Kinase 609U/L (39-308) Albumin 2.6g/dL (3.4-5.0) Lipase 430U/L (73-393) Influenza Type A Antigen Negative (NEGATIVE) Influenza Type B Antigen Negative (NEGATIVE) Objective Assessment Fever Tooth ache left upper molar Pancreatitis Rhabdo Plan Plan of Care Procalcitnin CT maxofacial Augmentin monitor fever Thank you # [id number] KATERIN BRUCE MD Oct 13, 2016 14:18
[2016-10-13 15:00] VITALS: BP 133/79
[2016-10-13] MEDS ORDERED: AMOXICILLIN/K CLAV 875/125MG TABLET. PO SCH (15:00)
--- NOTE | 2016-10-13 17:20 | PDOC ---
Provider Note Provider Note RENAL F/U : OCTAVIO S : No c/o O : VSS Afebrile. Alert. Neck : Supple Lungs : Non labored. Decreased bases. CVS : RRR Abd : Benign appearance. Ext : No CCE No major edema. Neuro : Grossly intact. Labs reviewed. ARF/ATN RHABDOMYOLYSIS DEHYDRATION. Doing better Cr improved. Reduce IVF. Follow I/Os Supportive care. ANDRAE CUNNINGHAM MD Oct 13, 2016 17:20
--- NOTE | 2016-10-14 01:26 | CONS ---
DATE OF CONSULTATION: 10/13/2016 LOCATION: The patient's room is 519. REQUESTING PHYSICIAN: Dr. Barakat. REASON FOR CONSULTATION: Fever. HISTORY OF PRESENT ILLNESS: The patient is a pleasant 26-year-old -[place] gentleman who was admitted to [facility] secondary to worsening abdominal pain. He was seen in 2 weeks prior for chest pain, was discharged home. Prior to his arrival, he had significant nausea, vomiting and decreased color of his urine. Subsequently, he was admitted and was found to have pancreatitis based on lab values. He did undergo a CT scan with contrast of his abdomen and pelvis, no oral contrast was given, but there was no clear peripancreatic inflammation or complications of pancreatitis. He underwent abdominal ultrasound, showed no significant gallbladder abnormality. His white blood cell count has been normal since his admission, although he did have thrombocytopenia, subsequently it has improved. He has been checked for CMV, mono, influenza and hepatitis, all of which have been negative for acute disease. His lipase was as high as 1900 and his creatinine kinase was 2906 on arrival. Most recent creatinine kinase has improved to 609 and lipase is down to 430. The patient is sitting in a chair. He is hoping to go home, as he is feeling well. Denies any headaches. He does have a problem with his left upper molar tooth that hurts at times, particularly when he has cold fluids. No sinus drainage, congestion or cough. No chest pain. No nausea, vomiting, diarrhea, dysuria, frequency, urgency. No rashes. No swelling of the joints. PAST MEDICAL HISTORY: Essentially negative except for some asthma. PAST SURGICAL HISTORY: Negative. SOCIAL HISTORY: He is a smoker. FAMILY HISTORY: Mom and dad are positive for hypertension and diabetes. ALLERGIES: No known drug allergies. CURRENT MEDICATIONS: Include Tylenol, Zofran, hydrocodone, Protonix. Other meds are available and reviewed in the chart. PHYSICAL EXAMINATION: VITAL SIGNS: Temperature 101.8, pulse 84, respirations 16, blood pressure 117/75, satting 99% on room air. CONSTITUTIONAL: He is pleasant, cooperative. He is in no acute distress. He is sitting in a chair. He wears glasses. HEENT: Oral cavity, oropharynx, there is no gross gingivitis seen, it is little tender on the left side. Unclear if he has got some left swelling there, but it is nontender on palpation. NECK: Supple, good range of motion. LUNGS: Clear to auscultation bilaterally. HEART: S1, S2. ABDOMEN: Soft, nontender, nondistended, positive bowel sounds. EXTREMITIES: No clubbing, cyanosis or gross edema. SKIN: Warm to touch without signs of rash. Joints are without inflammation. NEUROLOGIC: He is nonfocal, moves all extremities. His affect is appropriate. LABORATORY VALUES: From the , white count of 5, hemoglobin 12.1, platelets of 168, neutrophils 76, lymphs 14, monos 9. Glucose today of 68, creatinine 0.9, lipase 430. Most recent creatinine kinase of 609. Urinalysis from the does not look infected. Drug screen positive for cannabinoids and opiates. Again influenza, hepatitis, mono and CMV are negative for active disease. All cultures are negative at this point. IMPRESSION: 1. Fever. 2. Tooth ache in left upper molar. 3. Pancreatitis. 4. Rhabdomyolysis. RECOMMENDATIONS: We will obtain a procalcitonin, we will CT his maxillofacial area, begin Augmentin and monitor his fever. Thank you for allowing me to participate in this patient's care. If you have any questions, please do not hesitate to contact me. KATERIN BRUCE MD DR: [email or web address] JOB#: [id number] / [id number]
--- NOTE | 2016-10-14 08:41 | RAD ---
CT of the paranasal sinuses without contrast, 10/13/2016: History: Dental pain and fever Noncontrast scans were obtained with multiplanar reconstructions produced. There is opacification of much of the right maxillary sinus. There is moderate mucosal thickening in the left maxillary sinus. The ostiomeatal complexes are not significantly aerated. There is partial opacification of both frontal and ethmoid sinuses. The left sphenoid sinus is completely opacified. There is mucosal thickening and partial opacification of the right sphenoid sinus. No underlying bony abnormality is detected. The orbital contents are unremarkable. IMPRESSION: Extensive pansinusitis. PQRS Compliance Statement: One or more of the following individualized dose reduction techniques were utilized for this examination: 1. Automated exposure control 2. Adjustment of the mA and/or kV according to patient size 3. Use of iterative reconstruction technique
== END 2016-10-13 17:28 | disposition left against medical advice (07) | DRG 438 ==
LOC: ER 12:40 → 5 NORTH 14:47
PROVIDERS: ADMIT Internal Medicine; ATTEND Internal Medicine
DX: K85.90 Acute pancreatitis without necrosis or infection, unspecified (principal); N17.0 Acute kidney failure with tubular necrosis; M62.82 Rhabdomyolysis; D61.818 Other pancytopenia; E44.0 Moderate protein-calorie malnutrition; E86.0 Dehydration; E86.1 Hypovolemia; R74.0 Nonspecific elevation of levels of transaminase and lactic acid dehydrogenase [LDH]; E87.6 Hypokalemia; F17.210 Nicotine dependence, cigarettes, uncomplicated; J45.909 Unspecified asthma, uncomplicated; Z53.21 Procedure and treatment not carried out due to patient leaving prior to being seen by health care provider; K08.89 Other specified disorders of teeth and supporting structures; Z82.49 Family history of ischemic heart disease and other diseases of the circulatory system; Z83.3 Family history of diabetes mellitus; Z68.26 Body mass index [BMI] 26.0-26.9, adult; Z79.899 Other long term (current) drug therapy
CPT/HCPCS: 36415; 70486; 71010; 74177; 76705; 80048; 80053; 80069; 80074; 80076; 81001; 82550; 82608; 82728; 82746; 83540; 83550; 83690; 83735; 83874; 84145; 84443; 85007; 85027; 85651; 86140; 86308; 86644; 86645; 87040; 87086; 87804; 96361; 96374; 96375; G0481; J1756; J2405; J3010; J3480; J7030; J7050; Q9967; S0028; 99285-25

== ENCOUNTER 2017-12-23 16:50 | Emergency (ER) | payer SELFPAY | END 2017-12-23 18:07 | disposition home or self-care (01) | LOC: ER 16:50 | DX: S39.012A Strain of muscle, fascia and tendon of lower back, initial encounter (principal); V73.6XXA Passenger on bus injured in collision with car, pick-up truck or van in traffic accident, initial encounter; Y93.89 Activity, other specified; Y99.8 Other external cause status; Y92.410 Unspecified street and highway as the place of occurrence of the external cause | CPT/HCPCS: 99283 ==